=== PATIENT | female | born 1985 | race Caucasian/White ===

== ENCOUNTER 2023-11-09 12:30 | Outpatient (REF) | payer OTHER, SELFPAY ==
[2023-11-11 14:34] LABS: Amphetamine Screen Urine Not Detected (Not Detect); Barbiturates, Urine Not Detected (Not Detect); Benzodiazepines Screen Urine Not Detected (Not Detect); Buprenorphine Scr Not Detected (Not Detect); Cannabinoid Screen Urine POSITIVE (Not Detect); Cocaine Screen Urine Not Detected (Not Detect); Fentanyl, urine Not Detected (Not Detect); Methadone Screen, Urine Not Detected (Not Detect); Opiate Screen Urine Not Detected (Not Detect); Oxycodone Screen Urine Not Detected (Not Detect); Phencyclidine Screen Urine Not Detected (Not Detect)
== END 2023-11-09 12:31 | disposition home or self-care (01) ==
LOC: HO.PHPLNP 12:30
PROVIDERS: Visit Provider Psychiatry & Neurology Psychiatry
DX: F33.1 Major depressive disorder, recurrent, moderate (principal); F12.10 Cannabis abuse, uncomplicated; F10.20 Alcohol dependence, uncomplicated
CPT/HCPCS: 80307

== ENCOUNTER 2023-11-10 08:30 | Outpatient (RCR) | payer OTHER, SELFPAY ==
[2023-11-09 11:44] VITALS: BMI 25.9
[2023-11-09 13:03] VITALS: BP 136/92; PULSE 67; TEMP 37.1
--- NOTE | 2023-11-09 14:49 | PC.ADMIT ---
Patient is a 38 year old female who was referred to [facility] by her out patient therapist d/t increased depression and anxiety secondary to loss of employment and her 4.5 year relationship ending. Patient reports feeling blind-sided regarding the end of the relationship and is tearful when talking about the relationship. Reports she is trying to figure out what when wrong. Patient reports she was planning on asking her ex-girlfriend to her in January 2024. Patient reports a history of binge drinking when feeling overwhelmed. Stated she has been drinking about a beer daily or every other day since the age of 24. Stated she will drink heavily for 2-3 months then cut down to drinking a beer a day or so for the next several months. Stated currently for the past 2.5 weeks she was drinking 5 pints of beer with 6.2 percent alcohol each. Denied any current alcohol withdrawal sxs. Denied diaphoresis, no tremors, no nausea, no vomiting, no AH, No VH. Denied any history of alcohol withdrawal when she stopped drinking heavily and denied withdrawal seizures. Patient is alert and oriented x4. Calm and cooperative. Presented with depressed mood and anxious affect, tearful at times. When asked if she was having any suicidal thoughts she stated, Just Suicidal thoughts. Not wanting to leave my mom alone. No plans though. No thoughts to act on it, they subsided. They were heavy at day when the break up was fresh . I don't have access to any firearms. Even though I have suicidal thoughts I have not been cutting myself. I could not do that to my mother . She was given a copy of her safety plan if needed. Reports she has been spending time with her friend Adriana. Spending time with Adriana two times a week. Reports she is living in the house she purchased with her ex-. Stated her mother moved in with her as well for more support. Medications reconciled with patient and patient's pharmacy. She reports taking medications as prescribed. Educated patient about the effects of alcohol mixing with antidepressant medication including decreased efficacy and potential side effects.
--- NOTE | 2023-11-10 14:14 | PC.NURSE ---
Dr Parisi met with Trudy and Trudy disclosed she is having SI and HI towards her mother. She reports she does not want to leave her mom alone as she is the only child. Searching less painful ways to commit suicide and homicide however has no specific plan at this time and no intent. She reports drinking 6-8 beers a night with high alcohol content. She also lost her job and relationship recently and is feeling hopeless. Nurse to Nurse done with Berna CASTILLO in the pod regarding the above mentioned information and also notified Berna that Patient on Section 12 A that I will be faxing over to the ER.
--- NOTE | 2023-11-10 17:23 | HO.PHP ---
Client's case has been opened and reviewed in team.
--- NOTE | 2023-11-10 18:09 | HO.PS.ADMBH ---
HPI Date of Service: 11/10/23 Chief Complaint: depression,anxiety Sources of Information: patient interviewed, chart reviewed and crisis/core team assessment reviewed HPI Narrative: This is the first [facility] admission for this 38 yo previously female with limited past psychiatric history who was referred by her outpatient therapist for worsening depression/SI and alcohol abuse in context of acute life stressors in the past month including recent job loss and grief/heartbreak related to dissolution of a long-term relationship in the past few weeks. She was fired from her job 1.5 months ago and does not feel she has any close friends or supports at this time aside from her mother whom she is currently living with since moving back to [facility] a month ago following the break-up. She reports being an only child and aside from her mother has no family that she feels close enough to, to speak of. SHe also has been drinking more heavily since the break-up (was previously a 1 beer/day or less) which has been at 6-8 beers every evening for the past month. She feels the alcohol helps her numb out and minimizes the affects of alcohol on her judgment or impulse control. She reports her mood as being extremely depressed, and does not feel like alcohol makes it worse and suggests perhaps it helps her from feeling anything. I just felt like there's no point and I just want to let go She was very tearful and distraught during our meeting, reports feeling profoundly hopeless about life, and has been having constant thoughts about not wanting to be here and feeling life is not worth living since her partner broke up with her unexpectedly one month ago. She reports experiencing worsening suicidal thoughts in the past few weeks, which have evolved into more active SI/HI with various plans including crashing her car with her mom as passenger in the car, or using a gun and maybe taking us both out with one shot through the head (physically gestures like perhaps her head on top of her mother's, asleep?). She denies taking any concrete steps but has been spending more time thinking of the logistics involved with the suicidal thoughts. Like two weeks ago, I told my mom about the suicidal thoughts... She was so scared, she made me promise I would never leave her. Since then I've been thinking of ways to that that wouldn't be painful, like 'If I have to take my mom with me I'm thinking a car could be fastest' . She could not identify any protective factors and says that it is only the obstacle of it possibly causing pain that has kept her from acting on these suicidal thoughts. I never think about anything else. I don't even think about how it would affect the rest of the family (relatives)... I just don't want my mom to be left behind to suffer if I'm gone . She denies any current plan or intention to act on this today, says she has been trying to keep herself distracted , however she adds that it just feels like it's a matter of time...if I happen to come across an idea I haven't thought of that's painless, I think I would do it . At the worst moments of mental anguish, she has been starting to warm-up to the idea of just choosing the means that is the least painful way to ... I'm starting to accept that there probably isn't a way that will be completely free from pain , specifically she thinks a gun would be instantaneous but would try to conceive of a way to do it with one shot (to kill herself and her mother at the same time). She denies having access to a firearm, but says I know I could get one at [facility] or at [facility], I doubt it would take long...the system's f&*ked up . Past Psychiatric History: No IP, PHP, detox admissions Denies SA SIB 4 yrs ago while going through divorce Therapist: Rhoda Galeano Previous medication trials: clonidine CURRENT MEDICATIONS: fluoxetine 80 mg QHS [facility] Medical History Sleep apnea Narrative: DEREK (dx 06/2023) on CPAP SH: wisdom teeth removal Denies seizures Denies TBI/concussions Ht: 5'4 Wt: 151 lbs ALL: acetaminophen, azithromycin, hydrocodone, sulfa Surgical History History of cholecystectomy Social History: Previously , 4 yrs ago. 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 Substance History: Alcohol use: recently been drinking more heavily, average drinking 6-8 beers in the evening (prior to break-up typically drank 1 unit or less/day Cannabis use: in the evenings Denies other substance use Diagnostics Vital Signs (24Hr): BMI result Body Mass Index 25.9 Meds/Allergies Meds Home Medications ?Medication ?Instructions ?Recorded ?Confirmed ?Type albuterol sulfate 90 mcg/actuation 2 puff inhalation Q4H PRN sob 11/09/23 11/10/23 History aerosol inhaler melatonin 10 mg tablet 10 mg PO BEDTIME PRN Insomnia 11/09/23 11/10/23 History montelukast 10 mg tablet 10 mg PO BEDTIME 11/09/23 11/10/23 History (Singulair) paroxetine HCl 20 mg tablet 20 mg PO DAILY 11/09/23 11/10/23 History paroxetine HCl 40 mg tablet 40 mg PO DAILY 11/09/23 11/10/23 History Allergies Allergies Allergy/AdvReac Type Severity Reaction Status Date / Time acetaminophen [From Vicodin] Allergy Nausea and Verified 11/10/23 14:31 Vomiting azithromycin Allergy Nausea and Verified 11/10/23 14:31 [From Zithromax Z-Giorgio] Vomiting hydrocodone [From Vicodin] Allergy Nausea and Verified 11/10/23 14:31 Vomiting Sulfa (Sulfonamide Allergy Unknown Verified 11/10/23 14:31 Antibiotics) Mental Status Exam Mental Status Exam Patient Orientation: Person, Place, Time and Situation Level of Consciousness: Awake and Alert Patient Behavior: Crying and Poor Eye Contact Mood Description: Depressed Affect Description: Depressed and Sad Patient Cognition Impaired: No Speech Pattern: Clear, Spontaneous Speech and Coherent Memory Description: Intact Hallucinations: None Delusions: Not Present Thought Process: Intact, Racing, Rumination and Linear Thought Content: positive for Circumstantial, positive for Suicidal Ideation and positive for Homicidal Ideation Depressive Symptoms: Changes in Appetite, Loss of Int. in Activity, Feelings of Worthlessness, Hopelessness, Feelings of Guilt, Increased Fatigue, Thoughts of /Suicide, Low Self Esteem and Difficulty Concentrating Judgement and Insight: Insight limited, judgment impaired Assessment & Plan Assessment & Plan (1) Depression: Status: Acute Qualifiers: Active/Remission status: currently active Depression Type: major depressive disorder Major depression episode severity: severe Major depression recurrence: unspecified whether recurrent Psychotic features: without psychotic features Qualified Code(s): F32.2 - Major depressive disorder, single episode, severe without psychotic features Code(s): F32.A - Depression, unspecified (2) Suicidal ideation: Status: Acute Code(s): R45.851 - Suicidal ideations (3) Alcohol abuse: Status: Acute Code(s): F10.10 - Alcohol abuse, uncomplicated (4) Cannabis abuse: Status: Acute Code(s): F12.10 - Cannabis abuse, uncomplicated Plan Section 12 to [facility] due to elevated risk of harm to self/others and may warrant higher level of care at this time. Patient is agreeable with plan to be seen by Crisis, evaluate appropriateness for placement IPLOC. . Patient educated on: diagnosis, medication risk/benefits and substance abuse Informed Consent: understands Reason for continued partial hosp. stay Substantial Risk for: harm to self, harm to others, inability to function, rapid decompensation, med/psych decompensation and other (Dispo: voluntary Section 12 to ED Crisis for psychiatric evaluation for inpatient admission) Certification I certify that partial hospital treatment is medically necessary due to the symptoms and problems resulting from the patient's mental illness and the failure to treat the patient at the partial hospital level of care would likely result in the patient requiring inpatient psychiatric care which could not be prevented at a less intensive level of care. Time Spent With Patient Time: Total time managing care of this patient today _60___ minutes.
== END 2023-11-18 06:30 | disposition admitted as inpatient to this hospital (09) ==
LOC: HO.PHPA 08:30
PROVIDERS: Visit Provider Psychiatry & Neurology Psychiatry
DX: F32.2 Major depressive disorder, single episode, severe without psychotic features (principal); R45.851 Suicidal ideations; F10.10 Alcohol abuse, uncomplicated; F12.10 Cannabis abuse, uncomplicated
CPT/HCPCS: 90791; 90853

== ENCOUNTER → 2023-11-10 08:30 | Outpatient (BNV) | payer OTHER, SELFPAY | PROVIDERS: Visit Provider Psychiatry & Neurology Psychiatry | DX: F32.2 Major depressive disorder, single episode, severe without psychotic features (principal); R45.851 Suicidal ideations; F10.10 Alcohol abuse, uncomplicated; F12.10 Cannabis abuse, uncomplicated | CPT/HCPCS: 90792 ==

== ENCOUNTER 2023-11-10 14:18 | Inpatient (IN) | payer MEDICAID, SELFPAY ==
[2023-11-10 14:29] VITALS: BP 157/101; PULSE 82; RESP 16; TEMP 36.4; O2SAT 94; BMI 25.7
--- NOTE | 2023-11-10 14:31 | ED_ITS ---
HPI - Psych General Chief Complaint: Psychiatric Symptoms Stated Complaint: crisis Time Seen by Provider: 11/10/23 14:55 Source: patient Mode of arrival: ambulatory Limitations: no limitations History of Present Illness ED Provider: Daniela Humphries PA-C HPI Narrative: Patient is a 38 year old assigned female at with a history of depression presenting to the emergency department today with increased depression and suicidal ideation. Patient states that over the last 3-4 weeks she has been having increased depression with suicidal ideation and a plan she is not sharing at this time. Patient denies any dizziness, lightheadedness, abdominal pain, nausea, vomiting, fever, chills, blurry vision, double vision, loss of vision, chest pain, difficulty breathing, shortness of breath, back pain, night sweats, pain with urination, increased urinary frequency, increased urinary urgency, blood in her urine or stool, syncope or a near syncopal episode, recent trauma or falls, bowel incontinence, bladder incontinence, or any other complaints at this time. Related Data Home Medications ?Medication ?Instructions ?Recorded ?Confirmed albuterol sulfate 90 mcg/actuation 2 puff inhalation Q4H PRN sob 11/09/23 11/10/23 aerosol inhaler melatonin 10 mg tablet 10 mg PO BEDTIME PRN Insomnia 11/09/23 11/10/23 montelukast 10 mg tablet 10 mg PO BEDTIME 11/09/23 11/10/23 (Singulair) paroxetine HCl 20 mg tablet 20 mg PO DAILY 11/09/23 11/10/23 paroxetine HCl 40 mg tablet 40 mg PO DAILY 11/09/23 11/10/23 Allergies Allergy/AdvReac Type Severity Reaction Status Date / Time acetaminophen [From Vicodin] Allergy Nausea and Verified 11/10/23 14:31 Vomiting azithromycin Allergy Nausea and Verified 11/10/23 14:31 [From Zithromax Z-Giorgio] Vomiting hydrocodone [From Vicodin] Allergy Nausea and Verified 11/10/23 14:31 Vomiting Sulfa (Sulfonamide Allergy Unknown Verified 11/10/23 14:31 Antibiotics) Review of Systems 2 Constitutional: Constitutional: Reports no additional constitutional complaints, Denies chills, Denies fever(s) and Denies night sweats Eyes: Eyes: Reports no additional eye complaints, Denies blurry vision, Denies change in vision, Denies diplopia, Denies eye discharge, Denies loss of vision and Denies eye pain ENT: Denies dizziness Cardiovascular: Cardiovascular: Reports no additional cardiovascular complaints, Denies chest pain, Denies lightheadedness, Denies Loss of Consciousness and Denies dyspnea Respiratory: Respiratory: Reports no additional respiratory complaints and Denies dyspnea Gastrointestinal: Gastrointestinal: Reports no additional gastrointestinal complaints, Denies abdominal pain, Denies melena, Denies hematochezia, Denies change in bowel habits and Denies change in stool character Genitourinary: Genitourinary: Denies hematuria, Denies urinary frequency, Denies dysuria, Denies urinary incontinence, Denies urinary hesitancy and Denies urinary urgency Musculoskeletal: Musculoskeletal: Reports no additional musculoskeletal complaints, Denies numbness and Denies tingling Neurologic: Denies dizziness, Denies loss of vision, Denies numbness and Denies tingling Psychiatric: Psychiatric: Reports no additional psychiatric complaints, Reports depression, Denies homicidal ideation and Reports suicidal ideation Endocrine: Endocrine: Reports no additional endocrine complaints Hematologic/Lymphatic: Hematologic/Lymphatic: Reports no additional hematologic/lymphatic complaints Allergic/Immunologic: Allergic/Immunologic: Reports no additional allergic/immunologic complaints PMFSH Past Medical History Attestation statement: The following information was validated with the patient. Source: old records reviewed and nursing notes reviewed Medical History Sleep apnea Surgical History History of cholecystectomy Social History Social History Household Members: Family Household Members Other:: Mother Patient Tobacco Use Status: Former Tobacco user Advance Directives: No Advance Directives Information Provided: No Do you have a plan to hurt others: Specific Physical Exam 2 Vital Signs: Vital Signs: Last Vital Signs Temp 98.3 F 11/11/23 00:05 Pulse 93 11/11/23 00:05 Resp 18 11/11/23 00:05 BP 140/89 H 11/11/23 00:05 Pulse Ox 98 11/11/23 00:05 O2 Del Method Room Air 11/11/23 00:05 BMI result Body Mass Index 25.7 Const: General: cooperative, no acute distress, alert and awake Nutritional Appearance: well nourished Orientation/consciousness: patient oriented x3 Limitations: no limitations HEENT: Head: Yes normal to inspection and Yes atraumatic Ears: hearing grossly normal bilaterally and external ears normal General nose exam: Normal external nose present, no nasal discharge noted and no epistaxis Face and sinus: Yes normal facial exam, No abrasion and No laceration Mouth: Normal oral and palatal mucosa present, no drooling and no muffled voice Eyes: General: appearance normal, both eyes and all related structures P eriorbital: periorbital findings normal Eyelids: Yes eyelids normal C onjunctivae: conjunctivae normal Pupils: Equal, round and reactive pupils present EOM: EOMs intact bilaterally Neck: Neck: Yes normal visual inspection, Yes full ROM and Yes no lymphadenopathy Chest: Chest palpation & inspection: normal inspection of the chest Resp: Effort & Inspection: normal respiratory effort and able to speak in complete sentences GI: Inspection: Yes normal to inspection Neuro: General: patient oriented x3 and moves all extremities Cranial nerves: Yes Equal, round and reactive pupils present Cognition (Neuro): n ormal cognition Extrem: General: Yes normal to inspection, Yes full ROM and Yes capillary refill normal Psych: Appearance: grossly normal Mental Status: mental status grossly normal Affect: Sad affect present Attitude: Guarded attititude/behavior present Thought content: Suicidality present Course Course Course Narrative: This is a Rapid Medical Examination (RME) performed by Rivas Dumas PA-C in triage. Full HPI, ROS, assessment and treatment plan per primary provider in the Main ED. 38 yo female with history depression, anxiety compliant with medications who presents to the ER for evaluation of worsening depression and suicidal thoughts for the last 3-4 weeks. Plan: medical clearance, CARE team evaluation Reevaluation(s) Reevaluation #1: Physician observation continued. Uneventful night. Vital signs stable. No complaints from nursing overnight. Med reconciliation reviewed and done. Pending disposition. Will continue to monitor. Time: 07:26 Medications Administered Generic Name Dose Route Start Last Admin Trade Name Freq PRN Reason Stop Dose Admin Melatonin 9 mg 11/10/23 21:27 11/10/23 21:37 Melatonin 3 Mg Tablet PO 9 mg BEDTIME PRN Administration Insomnia Montelukast Sodium 10 mg 11/10/23 21:15 11/10/23 21:37 Montelukast Sodium 10 Mg Tablet PO 10 mg BEDTIME TANG Administration Medical Decision Making Medical Decision Making MDM Narrative: Patient is a 38 year old assigned female at with a history of depression presenting to the emergency department today with increased depression and suicidal ideation. Patient's physical exam was as noted in the physical exam portion of this note. Patient's blood work showed no acute process. Patient's urine showed no acute process. I explained my physical exam findings and all test results to the patient. I answered all questions asked by the patient. Patient's disposition pending CARE team evaluation. Differential Diagnosis Differential Diagnoses: The differential diagnosis associated with the presentation includes Depression SI Admission/Observation Consideration of admission/observation: Escalation of care including admission/observation considered Patient's disposition will be determined after CARE evaluation. Lab Data [facility] Lab Attestation statement: I reviewed the patient's lab results. My interpretation of these results are in the MDM Rationale portion of this note. 11/10/23 15:21 11/10/23 15:21 Labs: Lab Results 11/10/23 11/10/23 Range/Units 15:10 15:21 WBC 10.3 (4.8-10.8) X10*3/uL RBC 4.71 (4.20-5.50) X10*6/uL Hgb 14.3 (12.0-16.0) g/dl Hct 41.4 (37.0-47.0) % MCV 87.9 (80.0-98.0) fL MCH 30.4 (27.0-33.0) pg MCHC 34.5 (31.0-35.0) g/dl RDW 14.4 (11.0-16.0) % Plt Count 358 (160-400) X10*3/uL MPV 9.2 L (9.4-12.3) fL Immature Gran % (Auto) 0.6 H (0.0-0.4) % Neut % (Auto) 64.7 (45-73) % Lymph % (Auto) 22.3 (20-40) % [place] % (Auto) 6.8 (2-11) % Eos % (Auto) 4.4 H (0-4) % Baso % (Auto) 1.2 (0-2) % Lymph # (Auto) 2.3 (1.2-4.9) X10*3/uL [place] # (Auto) 0.7 (0.1-1.2) X10*3/uL Eos # (Auto) 0.5 H (0.0-0.4) X10*3/uL Baso # (Auto) 0.1 (0.0-0.2) X10*3/uL Abs Immat Gran (auto) 0.06 H (0.00-0.03) X10*3/uL Absolute Neuts (auto) 6.7 (2.0-8.3) x10*3/uL Absolute Nucleated RBC 0.000 (0.0-0.012) X10*3/uL Nucleated RBC % (auto) 0.0 (0.0-0.2) /100WBC Sodium 137 (135-145) mmol/L Potassium 4.1 (3.3-5.1) mmol/L Chloride 104 (96-108) mmol/L Carbon Dioxide 21 L (22-29) mmol/L Anion Gap 16 (12-20) BUN 10 (9-16) mg/dL Creatinine 0.75 (0.5-1.4) mg/dL Estim Creat Clear Calc 95.4 Estimated GFR > 60 Random Glucose 100 (60-115) mg/dL Calcium 9.5 (8.4-10.2) mg/dL Magnesium 2.0 (1.6-2.6) mg/dL Total Bilirubin 0.6 (0.0-1.0) mg/dL Direct Bilirubin 0.3 (0.0-0.5) mg/dL AST 26 (5-31) U/L ALT 24 (0-31) U/L Alkaline Phosphatase 104 (39-117) U/L Total Protein 8.0 (6.5-8.0) g/dL Albumin 4.2 (3.5-5.0) g/dL Urine Color Yellow Urine Appearance Clear Urine pH 7.0 (5.0-9.0) Ur Specific [place] 1.010 (1.005-1.025) Urine Protein Negative (Neg-Trace) mg/dL Urine Glucose (UA) Negative (Negative) mg/dL Urine Ketones Negative (Negative) mg/dL Urine Blood Negative (Negative) Urine Nitrite Negative (Negative) Ur Leukocyte Esterase Moderate (2+) H (Negative) Urine RBC 0-2 (0-2) /HPF Urine WBC 0-5 (0-5) /HPF Ur Squamous Epith Cells 3-5 (0-2) /HPF Urine Bacteria Trace (None Seen) Hyaline Casts 0-2 (0-2) /LPF Urine Test NEGATIVE (NEGATIVE) Urine Opiates Screen Not Detected (Not Detect) Ur Buprenorphine Scrn Not Detected (Not Detect) ng/mL Ur Oxycodone Screen Not Detected (Not Detect) ng/mL Urine Methadone Screen Not Detected (Not Detect) ng/mL Urine Fentanyl Screen Not Detected (Not Detect) Ur Barbiturates Screen Not Detected (Not Detect) Ur Phencyclidine Scrn Not Detected (Not Detect) Ur Amphetamines Screen Not Detected (Not Detect) U Benzodiazepines Scrn Not Detected (Not Detect) Urine Cocaine Screen Not Detected (Not Detect) U Marijuana (THC) Screen POSITIVE H (Not Detect) Ethyl Alcohol < 10 mg/dL Discharge Plan Discharge Clinical Impression: Suicidal ideation Depression Qualifiers: Depression Type: major depressive disorder Major depression recurrence: u nspecified whether recurrent Active/Remission status: currently active Major depression episode severity: severe Psychotic features: without psychotic features Qualified Code(s): F32.2 - Major depressive disorder, single episode, severe without psychotic features Patient Disposition: Still a Patient Prescriptions: No Action paroxetine HCl 20 mg tablet 20 mg PO DAILY montelukast [Singulair] 10 mg Tablet 10 mg PO BEDTIME paroxetine HCl 40 mg tablet 40 mg PO DAILY melatonin 10 mg Tablet 10 mg PO BEDTIME PRN (Reason: Insomnia) Patient Comments: Patient taking Melatonin 20 mg QHS for sleep OTC. Educated patient regarding dosing of this medicaton. Patietn will review with [facility] presriber. Patient to reduce dose to 10 mg PRN. albuterol sulfate 90 mcg/actuation HFA aerosol inhaler 2 puff INHALATION Q4H PRN (Reason: sob) Interventions: White-Suicide Risk Severity Scale Last Done: 11/10/23 14:59 Print Language: Hungarian
--- NOTE | 2023-11-10 15:01 | PC.NURSE ---
Nursing Assessment/Communication Patient endorsing suicidal ideations and homicidal ideations towards mother. Per report patient endorsed a murder/suicide method.
--- NOTE | 2023-11-10 15:12 | MHC.CARE ---
Per May with [facility], patient reported SI and also stated she is an only child and didn't want to leave her mother all alone, and would instead take her with her and was researching painless ways to , for both herself and her mother. She denies current intent and specific plan, did mention self strangulation. She is reported to be researching suicide online, stating she does not want a painful for herself or her mother. Additionally, has been drinking 6-8 pints of 6.25% alcohol IPAs nightly.
[2023-11-10 15:17] VITALS: BP 158/86; PULSE 77; RESP 18; TEMP 37.1; O2SAT 98
[2023-11-10 15:21] LABS: Appearance Urine Clear; Color Urine Yellow; Glucose Urine UA Negative (Negative); Leukocyte Esterase Urine Moderate (2+) (Negative); Nitrite Urine Negative (Negative); UMIC TRIGGER UACC YES; Urine Blood Negative (Negative); Urine Ketones Negative (Negative); Urine Protein Negative (Neg-Trace)
[2023-11-10 15:26] LABS: MANUAL DIFF FLAG NO
[2023-11-10 15:26] LABS: Amphetamine Screen Urine Not Detected (Not Detect); Barbiturates, Urine Not Detected (Not Detect); Benzodiazepines Screen Urine Not Detected (Not Detect); Buprenorphine Scr Not Detected (Not Detect); Cannabinoid Screen Urine POSITIVE (Not Detect); Cocaine Screen Urine Not Detected (Not Detect); Fentanyl, urine Not Detected (Not Detect); Methadone Screen, Urine Not Detected (Not Detect); Opiate Screen Urine Not Detected (Not Detect); Oxycodone Screen Urine Not Detected (Not Detect); Phencyclidine Screen Urine Not Detected (Not Detect); Urine Pregnancy NEGATIVE (NEGATIVE)
[2023-11-10 15:27] LABS: UPreg QC Valid YES
[2023-11-10 15:32] LABS: Basophils Absolute Auto 0.1 X10*3/uL (0.0-0.2); Basophils Percent Auto 1.2 % (0-2); Eosinophils Absolute Auto 0.5 X10*3/uL (0.0-0.4); Eosinophils Percent Auto 4.4 % (0-4); Hematocrit 41.4 % (37.0-47.0); Hemoglobin 14.3 g/dl (12.0-16.0); Imm Gran Abs Auto 0.06 X10*3/uL (0.00-0.03); Imm Gran Pct Auto 0.6 % (0.0-0.4); Lymphocytes Absolute Auto 2.3 X10*3/uL (1.2-4.9); Lymphocytes Percent Auto 22.3 % (20-40); Mean Corpuscular HGB Conc 34.5 g/dl (31.0-35.0); Mean Corpuscular Hemoglobin 30.4 pg (27.0-33.0); Mean Corpuscular Volume 87.9 fL (80.0-98.0); Mean Platelet Volume 9.2 fL (9.4-12.3); Monocytes Absolute Auto 0.7 X10*3/uL (0.1-1.2); Monocytes Percent Auto 6.8 % (2-11); Neutrophils Absolute Auto 6.7 x10*3/uL (2.0-8.3); Neutrophils Percent Auto 64.7 % (45-73); Platelet Count 358 X10*3/uL (160-400); Red Blood Count 4.71 X10*6/uL (4.20-5.50); Red Cell Distribution Width 14.4 % (11.0-16.0); White Blood Count 10.3 X10*3/uL (4.8-10.8)
[2023-11-10 15:37] LABS: Bacteria Urine Trace (None Seen); Hyaline Casts Urine 0-2 /LPF (0-2); RBC Urine 0-2 /HPF (0-2); WBC Urine 0-5 /HPF (0-5)
[2023-11-10 15:50] LABS: Alanine Aminotransferase 24 U/L (0-31); Albumin Level 4.2 g/dL (3.5-5.0); Alkaline Phosphatase 104 U/L (39-117); Anion Gap 16 (12-20); Aspartate Amino Transferase 26 U/L (5-31); Bilirubin Direct 0.3 mg/dL (0.0-0.5); Bilirubin Total 0.6 mg/dL (0.0-1.0); Blood Urea Nitrogen 10 mg/dL (9-16); Calcium 9.5 mg/dL (8.4-10.2); Carbon Dioxide 21 mmol/L (22-29); Chloride 104 mmol/L (96-108); Creatinine Clr Calc Pharmacy 95.4; Estimated Glomerular Filt Rate > 60; Ethanol < 10 mg/dL; Glucose Random 100 mg/dL (60-115); Potassium 4.1 mmol/L (3.3-5.1); Sodium 137 mmol/L (135-145)
--- NOTE | 2023-11-10 19:52 | PC.NURSE ---
patient appears to remain at rest presently respirations are even and unlabored patient appears in no distress.
--- NOTE | 2023-11-10 21:06 | MHC.CARE ---
Pt evaluated by the CARE team and is an adult bedsearch. On a section 12A for safety.
[2023-11-10 21:22] VITALS: BP 146/93; PULSE 89; RESP 16; O2SAT 97
[2023-11-10] MEDS: Montelukast Sodium 10 MG TABLET PO (21:37)
[2023-11-10] MEDS: Melatonin 3 MG TABLET 9 MG PO (21:37)
[2023-11-11 00:05] VITALS: BP 140/89; PULSE 93; RESP 18; TEMP 36.8; O2SAT 98
[2023-11-11] MEDS: PARoxetine HCL 40 MG TABLET PO (09:12)
[2023-11-11] MEDS: PARoxetine HCL 20 MG TABLET PO (09:12)
--- NOTE | 2023-11-11 11:23 | PC.NURSE ---
Assumed care of this patient at 1100, patient resting quietly on bed, tearful at times, mother at bedside at this time.
--- NOTE | 2023-11-11 12:14 | PC.NURSE ---
RN to RN phone report given to Keila, question regarding last drink answered via [place] text, plan for admission inpatient pending bed assignment.
[2023-11-11 12:42] VITALS: BP 159/86; PULSE 90; RESP 20; TEMP 37.3; O2SAT 98
[2023-11-11 13:10] VITALS: BP 168/94; PULSE 80; RESP 16; TEMP 36.5; O2SAT 96
[2023-11-11 13:31] VITALS: BMI 25.4
--- NOTE | 2023-11-11 15:48 | PC.ADMIT ---
Maia Yates was admitted to from [facility] on 11/11/23 at 13:00 on a 12a for the treatment of depression. She signed a CV upon arrival. She denies current suicidal and homicidal thoughts and intent. She denies auditory and visual hallucinations. She was pleasant and cooperative with admission process. Maia reports that she was let go from her job mid September, broke up with her fpc partner in October, and then moved from [facility] back to [place] to her mother's house. She reports housing is stable. She is alert and oriented to person, place, thing, and situation. She denies history of trauma. She reports drinking 6-8 drinks daily for the past month or so and daily marijuana use. BAL was 98 and utox was negative. She reports asthma and a recent diagnosis of sleep apnea and uses CPAP at night. She reports poor appetite and states she has lost about 20 lbs in the past 2 months or so. She reports she is currently in outpatient therapy and that her outpatient therapist advised her to seek a second opinion from crisis, and that she is looking to establish outpatient psychiatric providers while admitted.
--- NOTE | 2023-11-11 16:57 | HO.PSYADMNOT ---
[facility] Date of Service: 11/11/23 Chief Complaint: crisis Sources of Information: patient interviewed, chart reviewed and crisis/core team assessment reviewed HPI Subjective Notes: [place] Warning and Conditional Voluntary Narrative: Patient is a 38-year-old female with history of MDD, ZAINAB and alcohol use d/o, who presented [place] [facility] after she was walked over from [facility] due to suicidal and homicidal ideation secondary to life stressors. Per crisis report, patient has been searching less painful ways to commit suicide and homicide towards her mother. She denies AH/VH. This is patient's 1st inpatient psychiatric admission. Patient reported suicidal ideation with no specific plan, however reports that she has been searching for a way to do it painlessly and to involve her mother . Patient's relationship of 4 years recently ended abruptly. She was also recently laid off from her place of employment. Patient has been seeing an out patient therapist since 2018. History of cutting in 2018. Denies history of suicidal or homicidal ideation. Patient reports she drinks 6-8 beers a night for the past month and smokes marijuana daily. UTOX positive for marijuana. During admission assessment, alert and oriented x3. Calm, cooperative and tearful. Patient reports feeling depressed; patient stated, I tried a new career and it did not work out. My partner broke up with me and I was blindsided because we talked about getting . I feel lost and hopeless. My thoughts of suicide started and I promised my mom I wouldn't do it. Then I brought my mom into it so she would not have to be without me and I would not have to be without her . Patient denies AH/VH. Patient reports she has been taking Paxil since 2018; patient stated, it helps me with my mood on a day-to-day basis but not during stressful times. It is the only medication of ever tried . Patient reports she is open to trying other medications to help with her mood while inpatient. Patient reports she would like a referral to an outpatient psychiatric provider. Past Psychiatric History: No IP, PHP, detox admissions Denies SA SIB 4 yrs ago while going through divorce Therapist: Rhoda Galeano Medical Evaluation Reviewed: Yes PMFSH Medical History Sleep apnea Surgical History History of cholecystectomy Family History: Alcoholism Social History: Previously , 4 yrs ago. 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 Reports drinking 6-8 beers a night. Trauma History: Denies Diagnostics Vital Signs (24Hr): Vital Signs - 24 hr 11/10/23 21:22 11/11/23 00:05 11/11/23 12:42 Temperature 98.3 F 99.1 F Pulse Rate 89 93 90 Respiratory Rate 16 18 20 Blood Pressure 146/93 H 140/89 H 159/86 H Pulse Oximetry 97 98 98 Oxygen Delivery Method Room Air Room Air Room Air 11/11/23 13:10 Temperature 97.7 F Pulse Rate 80 Respiratory Rate 16 Blood Pressure 168/94 H Pulse Oximetry 96 Oxygen Delivery Method Room Air BMI result Body Mass Index 25.4 Labs 11/10/23 15:21 11/10/23 15:21 Labs: Laboratory Results - last 48 hr 11/10/23 11/10/23 15:10 15:21 WBC 10.3 RBC 4.71 Hgb 14.3 Hct 41.4 MCV 87.9 MCH 30.4 MCHC 34.5 RDW 14.4 Plt Count 358 MPV 9.2 L Immature Gran % (Auto) 0.6 H Neut % (Auto) 64.7 Lymph % (Auto) 22.3 [place] % (Auto) 6.8 Eos % (Auto) 4.4 H Baso % (Auto) 1.2 Lymph # (Auto) 2.3 [place] # (Auto) 0.7 Eos # (Auto) 0.5 H Baso # (Auto) 0.1 Abs Immat Gran (auto) 0.06 H Absolute Neuts (auto) 6.7 Absolute Nucleated RBC 0.000 Nucleated RBC % (auto) 0.0 Sodium 137 Potassium 4.1 Chloride 104 Carbon Dioxide 21 L Anion Gap 16 BUN 10 Creatinine 0.75 Estim Creat Clear Calc 95.4 Estimated GFR > 60 Random Glucose 100 Calcium 9.5 Magnesium 2.0 Total Bilirubin 0.6 Direct Bilirubin 0.3 AST 26 ALT 24 Alkaline Phosphatase 104 Total Protein 8.0 Albumin 4.2 Urine Color Yellow Urine Appearance Clear Urine pH 7.0 Ur Specific [place] 1.010 Urine Protein Negative Urine Glucose (UA) Negative Urine Ketones Negative Urine Blood Negative Urine Nitrite Negative Ur Leukocyte Esterase Moderate (2+) H Urine RBC 0-2 Urine WBC 0-5 Ur Squamous Epith Cells 3-5 Urine Bacteria Trace Hyaline Casts 0-2 Urine Test NEGATIVE Urine Opiates Screen Not Detected Ur Buprenorphine Scrn Not Detected Ur Oxycodone Screen Not Detected Urine Methadone Screen Not Detected Urine Fentanyl Screen Not Detected Ur Barbiturates Screen Not Detected Ur Phencyclidine Scrn Not Detected Ur Amphetamines Screen Not Detected U Benzodiazepines Scrn Not Detected Urine Cocaine Screen Not Detected U Marijuana (THC) Screen POSITIVE H Ethyl Alcohol < 10 Meds/Allergies Meds Home Medications ?Medication ?Instructions ?Recorded ?Confirmed ?Type albuterol sulfate 90 mcg/actuation 2 puff inhalation Q4H PRN sob 11/09/23 11/10/23 History aerosol inhaler melatonin 10 mg tablet 10 mg PO BEDTIME PRN Insomnia 11/09/23 11/10/23 History montelukast 10 mg tablet 10 mg PO BEDTIME 11/09/23 11/10/23 History (Singulair) paroxetine HCl 20 mg tablet 20 mg PO DAILY 11/09/23 11/10/23 History paroxetine HCl 40 mg tablet 40 mg PO DAILY 11/09/23 11/10/23 History Allergies Allergies Allergy/AdvReac Type Severity Reaction Status Date / Time acetaminophen [From Vicodin] Allergy Nausea and Verified 11/10/23 14:31 Vomiting azithromycin Allergy Nausea and Verified 11/10/23 14:31 [From Zithromax Z-Giorgio] Vomiting hydrocodone [From Vicodin] Allergy Nausea and Verified 11/10/23 14:31 Vomiting Sulfa (Sulfonamide Allergy Unknown Verified 11/10/23 14:31 Antibiotics) Mental Status Exam Mental Status Exam Narrative: Pt is alert and oriented; behavior is cooperative, calm, tearful; dressed in casual attire; mood is described as depressed ; eye contact appropriate; Speech is normal rate, volume and not pressured; thought process is organized; Thought content is on tx; otherwise pertinent to relevant topics and without any delusional content, paranoid ideations or grandiosity; denies AH/VH. Pt reports suicidal ideation with [place]. She reports homicidal ideation toward mother. Assessment & Plan Assessment & Plan (1) MDD (major depressive disorder), recurrent episode: Status: Acute Code(s): F33.9 - Major depressive disorder, recurrent, unspecified (2) Alcohol use disorder: Status: Acute Code(s): F10.90 - Alcohol use, unspecified, uncomplicated Plan Patient is a 38-year-old female with history of MDD, ZAINAB and alcohol use d/o, who presented [place] [facility] after she was walked over from [facility] due to suicidal and homicidal ideation secondary to life stressors. Plan: CV 15 minute safety checks CIWA Continue home medications Obtain collateral Start: Seroquel 25mg PO daily Seroquel 50mg PO bedtime Encourage groups Referral to outpatient psychiatric prescriber Discharge planning Patient educated on: diagnosis, medication risk/benefits and therapeutic strategies Informed Consent: understands Reason for continued inpatient stay Substantial Risk for: harm to self, harm to others and med/psych decompensation Statement Statement: I have reviewed the history and physical and performed a pertinent examination on my patient. No changes have occurred unless specified. If the History and Physical was not performed prior to admission, the Hospitalist's service will be consulted for completing the admission physical. Time Spent With Patient Time: Total time managing care of this patient today _60___ minutes.
[2023-11-11] MEDS: LORazepam 1 MG TABLET 2 MG PO (17:30)
[2023-11-11 18:38] VITALS: BP 154/96
[2023-11-11 20:00] VITALS: BP 141/80; PULSE 89; RESP 16; TEMP 36.6; O2SAT 97
[2023-11-11] MEDS: Montelukast Sodium 10 MG TABLET PO (21:55)
[2023-11-11] MEDS: QUEtiapine Fumarate 50 MG TABLET PO (21:56)
[2023-11-11] MEDS: traZODone HCL 50 MG TABLET PO (22:03)
[2023-11-11] MEDS: Melatonin 3 MG TABLET 9 MG PO (22:03)
[2023-11-11 23:28] VITALS: PULSE 138; RESP 14; O2SAT 98
[2023-11-12 08:00] VITALS: BP 142/76; PULSE 97; RESP 16; TEMP 36.3; O2SAT 100
--- NOTE | 2023-11-12 08:26 | P.PNPSI_ITS ---
Subjective Subjective Date of Service: 11/12/23 Reason For Visit: crisis Subjective Notes: Conditional Voluntary Healthcare Proxy: No Guardianship: No Medical Problems Affecting Mental Status: Yes (alcohol withdrawl) Interim History: 38 yo with recent significant psychosocial stressors loss of job and loss of relationship - xs etoh use and daily mj- presented with depression/si, 20 lb weight loss Feeling better today than yesterday - though fatigued withdrawn spending mostly time in bed- Reports feels plan to restart home meds and quetiapine are good plan- ongoing SI but no plan here on unit Medication Compliance: Yes Side effects from medications: Yes (?sedation) Attending Groups: Intermittent Review of Systems Acute medical concerns: Yes continue to monitor withdrawal from alcohol Medical Review of Systems: unchanged Mental Status Exam Mental Status Exam Narrative: lying in bed Patient Appearance: Appropriate Patient Orientation: Person, Place, Time and Situation Level of Consciousness: Drowsy Patient Behavior: Appropriate, Cooperative, Isolative and Good Eye Contact Mood Description: Withdrawn and Sad Affect Description: Blunted Patient Cognition Impaired: No Ability to Follow Directions: Fair Speech Pattern: Clear Hallucinations: None Delusions: Not Present Thought Process: Intact and Goal Oriented Thought Content: positive for Suicidal Ideation Depressive Symptoms: Increased Fatigue Judgement: Fair Diagnostics Vital Signs (24Hr): Vital Signs - 24 hr 11/11/23 12:42 11/11/23 13:10 11/11/23 18:38 Temperature 99.1 F 97.7 F Pulse Rate 90 80 Respiratory Rate 20 16 Blood Pressure 159/86 H 168/94 H 154/96 H Pulse Oximetry 98 96 Oxygen Delivery Method Room Air Room Air 11/11/23 20:00 11/11/23 23:28 11/12/23 08:00 Temperature 98 F 97.4 F Pulse Rate 89 97 Respiratory Rate 16 14 16 Blood Pressure 141/80 H 142/76 H Pulse Oximetry 97 100 Oxygen Delivery Method Room Air Room Air BMI result Body Mass Index 25.4 Labs 11/10/23 15:21 11/12/23 08:21 Labs: Laboratory Results - last 48 hr 11/10/23 11/10/23 15:10 15:21 WBC 10.3 RBC 4.71 Hgb 14.3 Hct 41.4 MCV 87.9 MCH 30.4 MCHC 34.5 RDW 14.4 Plt Count 358 MPV 9.2 L Immature Gran % (Auto) 0.6 H Neut % (Auto) 64.7 Lymph % (Auto) 22.3 [place] % (Auto) 6.8 Eos % (Auto) 4.4 H Baso % (Auto) 1.2 Lymph # (Auto) 2.3 [place] # (Auto) 0.7 Eos # (Auto) 0.5 H Baso # (Auto) 0.1 Abs Immat Gran (auto) 0.06 H Absolute Neuts (auto) 6.7 Absolute Nucleated RBC 0.000 Nucleated RBC % (auto) 0.0 Sodium 137 Potassium 4.1 Chloride 104 Carbon Dioxide 21 L Anion Gap 16 BUN 10 Creatinine 0.75 Estim Creat Clear Calc 95.4 Estimated GFR > 60 Random Glucose 100 Calcium 9.5 Magnesium 2.0 Total Bilirubin 0.6 Direct Bilirubin 0.3 AST 26 ALT 24 Alkaline Phosphatase 104 Total Protein 8.0 Albumin 4.2 Urine Color Yellow Urine Appearance Clear Urine pH 7.0 Ur Specific [place] 1.010 Urine Protein Negative Urine Glucose (UA) Negative Urine Ketones Negative Urine Blood Negative Urine Nitrite Negative Ur Leukocyte Esterase Moderate (2+) H Urine RBC 0-2 Urine WBC 0-5 Ur Squamous Epith Cells 3-5 Urine Bacteria Trace Hyaline Casts 0-2 Urine Test NEGATIVE Urine Opiates Screen Not Detected Ur Buprenorphine Scrn Not Detected Ur Oxycodone Screen Not Detected Urine Methadone Screen Not Detected Urine Fentanyl Screen Not Detected Ur Barbiturates Screen Not Detected Ur Phencyclidine Scrn Not Detected Ur Amphetamines Screen Not Detected U Benzodiazepines Scrn Not Detected Urine Cocaine Screen Not Detected U Marijuana (THC) Screen POSITIVE H Ethyl Alcohol < 10 Medications Medications Current Medications Al Hydroxide/Mg Hydroxide (Magnesium Hydrox/Alum Hydrox 30 Ml Oral.Susp) 30 ml PO Q6H PRN PRN Reason: Heartburn/Nausea Hydroxyzine HCl (Hydroxyzine Hcl 25 Mg Tablet) 25 mg PO Q6H PRN PRN Reason: Anxiety Ibuprofen (Ibuprofen 400 Mg Tablet) 400 mg PO Q6H PRN PRN Reason: Pain, Mild (Pain Scale 1-3) Lorazepam (Lorazepam 1 Mg Tablet) 1 mg PO Q2H PRN PRN Reason: CIWA 8-11 Lorazepam (Lorazepam 1 Mg Tablet) 2 mg PO Q2H PRN PRN Reason: CIWA 12-15 Last Admin: 11/11/23 17:30 Dose: 2 mg Lorazepam (Lorazepam 1 Mg Tablet) 3 mg PO Q2H PRN PRN Reason: CIWA > 15, and call Magnesium Hydroxide (Milk Of Magnesia 30 Ml Oral.Susp) 30 ml PO DAILY PRN PRN Reason: Constipation Melatonin (Melatonin 3 Mg Tablet) 9 mg PO BEDTIME PRN PRN Reason: Insomnia Last Admin: 11/11/23 22:03 Dose: 9 mg Montelukast Sodium (Montelukast Sodium 10 Mg Tablet) 10 mg PO BEDTIME [facility] Last Admin: 11/11/23 21:55 Dose: 10 mg Nicotine (Nicotine 21 Mg Patch.Td24) 21 mg TRANSDERMA DAILY [facility] Nicotine Polacrilex (Nicotine Polacrilex 2 Mg Gum) 4 mg BUCCAL Q2H PRN PRN Reason: Nicotine Cravings Paroxetine HCl (Paroxetine Hcl 20 Mg Tablet) 20 mg PO DAILY [facility] Last Admin: 11/11/23 09:12 Dose: 20 mg Paroxetine HCl (Paroxetine Hcl 40 Mg Tablet) 40 mg PO DAILY [facility] Last Admin: 11/11/23 09:12 Dose: 40 mg Quetiapine Fumarate (Quetiapine Fumarate 25 Mg Tablet) 25 mg PO DAILY [facility] Quetiapine Fumarate (Quetiapine Fumarate 50 Mg Tablet) 50 mg PO BEDTIME [facility] Last Admin: 11/11/23 21:56 Dose: 50 mg Quetiapine Fumarate (Quetiapine Fumarate 25 Mg Tablet) 25 mg PO BID PRN PRN Reason: Anxiety Thiamine HCl (Thiamine Hcl 100 Mg Tablet) 100 mg PO DAILY [facility] Trazodone HCl (Trazodone Hcl 50 Mg Tablet) 50 mg PO BEDTIME MRX1 PRN PRN Reason: Insomnia Last Admin: 11/11/23 22:03 Dose: 50 mg Allergies Allergies Allergy/AdvReac Type Severity Reaction Status Date / Time acetaminophen [From Vicodin] Allergy Nausea and Verified 11/10/23 14:31 Vomiting azithromycin Allergy Nausea and Verified 11/10/23 14:31 [From Zithromax Z-Giorgio] Vomiting hydrocodone [From Vicodin] Allergy Nausea and Verified 11/10/23 14:31 Vomiting Sulfa (Sulfonamide Allergy Unknown Verified 11/10/23 14:31 Antibiotics) Assessment & Plan Assessment & Plan (1) MDD (major depressive disorder), recurrent episode: Status: Acute Code(s): F33.9 - Major depressive disorder, recurrent, unspecified (2) Alcohol use disorder: Status: Acute Code(s): F10.90 - Alcohol use, unspecified, uncomplicated Plan Patient is a 38-year-old female with history of MDD, ZAINAB and alcohol use d/o, who presented to [facility] after she was walked over from [facility] due to suicidal and homicidal ideation secondary to life stressors. Plan: CV 15 minute safety checks CIWA Continue home medications Obtain collateral Start: Seroquel 25mg PO daily Seroquel 50mg PO bedtime Encourage groups Referral to outpatient psychiatric prescriber Discharge planning 11/12/23 CTP Patient educated on: substance abuse and therapeutic strategies Informed Consent: understands and further education needed Reason for continued inpatient stay Substantial Risk for: harm to self and rapid decompensation Time Spent With Patient Time: Total time managing care of this patient today ____ minutes.
[2023-11-12] MEDS: PARoxetine HCL 40 MG TABLET PO (08:45)
[2023-11-12] MEDS: Thiamine HCL 100 MG TABLET PO (08:45)
[2023-11-12] MEDS: QUEtiapine Fumarate 25 MG TABLET PO (08:45)
[2023-11-12] MEDS: PARoxetine HCL 20 MG TABLET PO (08:45)
[2023-11-12 08:57] LABS: Alanine Aminotransferase 25 U/L (0-31); Albumin Level 3.9 g/dL (3.5-5.0); Alkaline Phosphatase 88 U/L (39-117); Anion Gap 14 (12-20); Aspartate Amino Transferase 24 U/L (5-31); Bilirubin Total 0.7 mg/dL (0.0-1.0); Blood Urea Nitrogen 9 mg/dL (9-16); Calcium 9.5 mg/dL (8.4-10.2); Carbon Dioxide 25 mmol/L (22-29); Chloride 107 mmol/L (96-108); Cholesterol 179 mg/dL (<200); Creatinine Clr Calc Pharmacy 85.8; Estimated Glomerular Filt Rate > 60; Glucose Fasting 99 mg/dL (60-99); HDL Cholesterol 50 mg/dL (>40); LDL Cholesterol Calculated 114 mg/dL (<100); Potassium 4.2 mmol/L (3.3-5.1); Sodium 142 mmol/L (135-145); Total Protein 7.3 g/dL (6.5-8.0); Triglycerides 77 mg/dL (<150)
[2023-11-12 20:00] VITALS: BP 119/65; PULSE 85; RESP 16; TEMP 36.6; O2SAT 100
[2023-11-12] MEDS: QUEtiapine Fumarate 50 MG TABLET PO (20:30)
[2023-11-12] MEDS: Montelukast Sodium 10 MG TABLET PO (20:30)
[2023-11-12] MEDS: Melatonin 3 MG TABLET 9 MG PO (20:30)
[2023-11-12 23:37] VITALS: PULSE 72; O2SAT 98
[2023-11-13 08:00] VITALS: BP 116/73; PULSE 80; RESP 14; TEMP 36.1; O2SAT 99
[2023-11-13] MEDS: QUEtiapine Fumarate 25 MG TABLET PO (08:57)
[2023-11-13] MEDS: PARoxetine HCL 40 MG TABLET PO (08:57)
[2023-11-13] MEDS: Thiamine HCL 100 MG TABLET PO (08:58)
[2023-11-13] MEDS: PARoxetine HCL 20 MG TABLET PO (08:58)
--- NOTE | 2023-11-13 11:10 | P.PNPSI_ITS ---
Subjective Subjective Date of Service: 11/13/23 Reason For Visit: crisis Subjective Notes: Conditional Voluntary Healthcare Proxy: No Guardianship: No Medical Problems Affecting Mental Status: Yes (slight tremor - suggested she go get ciwa checked) Interim History: 38 yo reports feeling less full of grief and therefor less suicidal- today- tearful with provider still down- also reports cravings for alcohol, mj and caffeine. Hadn't meant to spend entire day in bed yesterday- Medication Compliance: Yes Side effects from medications: No Attending Groups: Intermittent Review of Systems Acute medical concerns: Yes some alcohol withdrawl Medical Review of Systems: unchanged Mental Status Exam Mental Status Exam Patient Appearance: Well Grooomed (just out of shower) and Appropriate Patient Orientation: Person, Place and Situation Level of Consciousness: Awake and Alert Patient Behavior: Appropriate, Cooperative and Crying Mood Description: Anxious and Sad Affect Description: Appropriate Patient Cognition Impaired: No Ability to Follow Directions: Good Speech Pattern: Clear Hallucinations: None Thought Process: Intact Thought Content: positive for Intact and positive for Goal Oriented Judgement: Fair Diagnostics Vital Signs (24Hr): Vital Signs - 24 hr 11/12/23 20:00 11/13/23 08:00 Temperature 97.8 F 96.9 F Pulse Rate 85 80 Respiratory Rate 16 14 Blood Pressure 119/65 116/73 Pulse Oximetry 100 99 Oxygen Delivery Method Room Air Room Air BMI result Body Mass Index 25.4 Labs 11/10/23 15:21 11/12/23 08:21 Labs: Laboratory Results - last 48 hr 11/12/23 08:21 Hold Purple Top SEE NOTE Sodium 142 Potassium 4.2 Chloride 107 Carbon Dioxide 25 Anion Gap 14 BUN 9 Creatinine 0.83 Estim Creat Clear Calc 85.8 Estimated GFR > 60 Fasting Glucose 99 Calcium 9.5 Total Bilirubin 0.7 AST 24 ALT 25 Alkaline Phosphatase 88 Total Protein 7.3 Albumin 3.9 Triglycerides 77 Cholesterol 179 LDL Cholesterol, Calc 114 H HDL Cholesterol 50 Medications Medications Current Medications Al Hydroxide/Mg Hydroxide (Magnesium Hydrox/Alum Hydrox 30 Ml Oral.Susp) 30 ml PO Q6H PRN PRN Reason: Heartburn/Nausea Hydroxyzine HCl (Hydroxyzine Hcl 25 Mg Tablet) 25 mg PO Q6H PRN PRN Reason: Anxiety Ibuprofen (Ibuprofen 400 Mg Tablet) 400 mg PO Q6H PRN PRN Reason: Pain, Mild (Pain Scale 1-3) Lorazepam (Lorazepam 1 Mg Tablet) 1 mg PO Q2H PRN PRN Reason: CIWA 8-11 Lorazepam (Lorazepam 1 Mg Tablet) 2 mg PO Q2H PRN PRN Reason: CIWA 12-15 Last Admin: 11/11/23 17:30 Dose: 2 mg Lorazepam (Lorazepam 1 Mg Tablet) 3 mg PO Q2H PRN PRN Reason: CIWA > 15, and call Magnesium Hydroxide (Milk Of Magnesia 30 Ml Oral.Susp) 30 ml PO DAILY PRN PRN Reason: Constipation Melatonin (Melatonin 3 Mg Tablet) 9 mg PO BEDTIME PRN PRN Reason: Insomnia Last Admin: 11/12/23 20:30 Dose: 9 mg Montelukast Sodium (Montelukast Sodium 10 Mg Tablet) 10 mg PO BEDTIME [facility] Last Admin: 11/12/23 20:30 Dose: 10 mg Nicotine Polacrilex (Nicotine Polacrilex 2 Mg Gum) 4 mg BUCCAL Q2H PRN PRN Reason: Nicotine Cravings Paroxetine HCl (Paroxetine Hcl 20 Mg Tablet) 20 mg PO DAILY [facility] Last Admin: 11/13/23 08:58 Dose: 20 mg Paroxetine HCl (Paroxetine Hcl 40 Mg Tablet) 40 mg PO DAILY [facility] Last Admin: 11/13/23 08:57 Dose: 40 mg Quetiapine Fumarate (Quetiapine Fumarate 25 Mg Tablet) 25 mg PO DAILY [facility] Last Admin: 11/13/23 08:57 Dose: 25 mg Quetiapine Fumarate (Quetiapine Fumarate 50 Mg Tablet) 50 mg PO BEDTIME [facility] Last Admin: 11/12/23 20:30 Dose: 50 mg Quetiapine Fumarate (Quetiapine Fumarate 25 Mg Tablet) 25 mg PO BID PRN PRN Reason: Anxiety Thiamine HCl (Thiamine Hcl 100 Mg Tablet) 100 mg PO DAILY [facility] Last Admin: 11/13/23 08:58 Dose: 100 mg Trazodone HCl (Trazodone Hcl 50 Mg Tablet) 50 mg PO BEDTIME MRX1 PRN PRN Reason: Insomnia Last Admin: 11/11/23 22:03 Dose: 50 mg Allergies Allergies Allergy/AdvReac Type Severity Reaction Status Date / Time acetaminophen [From Vicodin] Allergy Nausea and Verified 11/10/23 14:31 Vomiting azithromycin Allergy Nausea and Verified 11/10/23 14:31 [From Zithromax Z-Giorgio] Vomiting hydrocodone [From Vicodin] Allergy Nausea and Verified 11/10/23 14:31 Vomiting Sulfa (Sulfonamide Allergy Unknown Verified 11/10/23 14:31 Antibiotics) Assessment & Plan Assessment & Plan (1) MDD (major depressive disorder), recurrent episode: Status: Acute Code(s): F33.9 - Major depressive disorder, recurrent, unspecified (2) Alcohol use disorder: Status: Acute Code(s): F10.90 - Alcohol use, unspecified, uncomplicated Plan Patient is a 38-year-old female with history of MDD, ZAINAB and alcohol use d/o, who presented to [facility] after she was walked over from [facility] due to suicidal and homicidal ideation secondary to life stressors. Plan: CV 15 minute safety checks CIWA Continue home medications Obtain collateral Start: Seroquel 25mg PO daily Seroquel 50mg PO bedtime Encourage groups Referral to outpatient psychiatric prescriber Discharge planning 11/12/23 CTP 11/13/23- [facility] Patient educated on: medication risk/benefits and therapeutic strategies Informed Consent: understands Reason for continued inpatient stay Substantial Risk for: harm to self and rapid decompensation Time Spent With Patient Time: Total time managing care of this patient today ____ minutes.
[2023-11-13 12:00] VITALS: BP 128/86; PULSE 110
[2023-11-13] MEDS: LORazepam 1 MG TABLET PO (12:10)
[2023-11-13 16:13] VITALS: BP 114/73; PULSE 95; RESP 14; O2SAT 99
[2023-11-13 20:00] VITALS: BP 135/78; PULSE 88; RESP 16; TEMP 36.4; O2SAT 99
[2023-11-13] MEDS: Montelukast Sodium 10 MG TABLET PO (20:10)
[2023-11-13] MEDS: QUEtiapine Fumarate 50 MG TABLET PO (22:59)
[2023-11-14 07:29] VITALS: BP 118/79; PULSE 72; RESP 16; TEMP 36.9; O2SAT 100
[2023-11-14] MEDS: QUEtiapine Fumarate 25 MG TABLET PO (08:34)
[2023-11-14] MEDS: PARoxetine HCL 20 MG TABLET PO (08:34)
[2023-11-14] MEDS: Thiamine HCL 100 MG TABLET PO (08:34)
[2023-11-14] MEDS: PARoxetine HCL 40 MG TABLET PO (08:34)
--- NOTE | 2023-11-14 09:15 | P.PNPSI_ITS ---
Subjective Subjective Date of Service: 11/14/23 Reason For Visit: crisis Subjective Notes: Conditional Voluntary Interim History: Reviewed with Dr. Courtney. Attending groups. Pt continues to report feeling sad today. Pt reports suicidal and homicidal ideation towards mother. Pt stated, the medication is helping and the thoughts are not as frequent. But it's still on my mind . She reports feeling alcohol withdrawal symptoms improving. denies AH/VH. Medication Compliance: Yes Side effects from medications: No Attending Groups: Yes Review of Systems Constitutional: Reports as per HPI Eyes: Reports as per HPI Reports as per HPI Cardiovascular: Reports as per HPI Respiratory: Reports as per HPI Gastrointestinal: Reports as per HPI Genitourinary: Reports as per HPI Musculoskeletal: Reports as per HPI Skin/Breast: Reports as per HPI Reports as per HPI Psychiatric: Reports as per HPI Endocrine: Reports as per HPI Hematologic/Lymphatic: Reports as per HPI Allergic/Immunologic: Reports as per HPI Mental Status Exam Mental Status Exam Narrative: Pt is alert and oriented; behavior is cooperative, friendly and calm; dressed in casual attire; mood is described as sad ; eye contact appropriate; Speech is normal rate, volume and not pressured; thought process is organized; Thought content is on tx; otherwise pertinent to relevant topics and without any delusional content, paranoid ideations or grandiosity; denies AH/VH. Pt reports suicidal and homicidal ideation. Diagnostics Vital Signs (24Hr): Vital Signs - 24 hr 11/13/23 12:00 11/13/23 16:13 11/13/23 20:00 Temperature 97.6 F Pulse Rate 110 H 95 88 Respiratory Rate 14 16 Blood Pressure 128/86 114/73 135/78 Pulse Oximetry 99 99 Oxygen Delivery Method Room Air Room Air 11/14/23 07:29 Temperature 98.4 F Pulse Rate 72 Respiratory Rate 16 Blood Pressure 118/79 Pulse Oximetry 100 Oxygen Delivery Method Room Air BMI result Body Mass Index 25.4 Labs 11/10/23 15:21 11/12/23 08:21 Medications Medications Current Medications Al Hydroxide/Mg Hydroxide (Magnesium Hydrox/Alum Hydrox 30 Ml Oral.Susp) 30 ml PO Q6H PRN PRN Reason: Heartburn/Nausea Hydroxyzine HCl (Hydroxyzine Hcl 25 Mg Tablet) 25 mg PO Q6H PRN PRN Reason: Anxiety Ibuprofen (Ibuprofen 400 Mg Tablet) 400 mg PO Q6H PRN PRN Reason: Pain, Mild (Pain Scale 1-3) Lorazepam (Lorazepam 1 Mg Tablet) 1 mg PO Q2H PRN PRN Reason: CIWA 8-11 Last Admin: 11/13/23 12:10 Dose: 1 mg Lorazepam (Lorazepam 1 Mg Tablet) 2 mg PO Q2H PRN PRN Reason: CIWA 12-15 Last Admin: 11/11/23 17:30 Dose: 2 mg Lorazepam (Lorazepam 1 Mg Tablet) 3 mg PO Q2H PRN PRN Reason: CIWA > 15, and call Magnesium Hydroxide (Milk Of Magnesia 30 Ml Oral.Susp) 30 ml PO DAILY PRN PRN Reason: Constipation Melatonin (Melatonin 3 Mg Tablet) 9 mg PO BEDTIME PRN PRN Reason: Insomnia Last Admin: 11/12/23 20:30 Dose: 9 mg Montelukast Sodium (Montelukast Sodium 10 Mg Tablet) 10 mg PO BEDTIME [facility] Last Admin: 11/13/23 20:10 Dose: 10 mg Nicotine Polacrilex (Nicotine Polacrilex 2 Mg Gum) 4 mg BUCCAL Q2H PRN PRN Reason: Nicotine Cravings Paroxetine HCl (Paroxetine Hcl 20 Mg Tablet) 20 mg PO DAILY [facility] Last Admin: 11/14/23 08:34 Dose: 20 mg Paroxetine HCl (Paroxetine Hcl 40 Mg Tablet) 40 mg PO DAILY [facility] Last Admin: 11/14/23 08:34 Dose: 40 mg Quetiapine Fumarate (Quetiapine Fumarate 25 Mg Tablet) 25 mg PO DAILY [facility] Last Admin: 11/14/23 08:34 Dose: 25 mg Quetiapine Fumarate (Quetiapine Fumarate 50 Mg Tablet) 50 mg PO BEDTIME [facility] Last Admin: 11/13/23 22:59 Dose: 50 mg Quetiapine Fumarate (Quetiapine Fumarate 25 Mg Tablet) 25 mg PO BID PRN PRN Reason: Anxiety Thiamine HCl (Thiamine Hcl 100 Mg Tablet) 100 mg PO DAILY [facility] Last Admin: 11/14/23 08:34 Dose: 100 mg Trazodone HCl (Trazodone Hcl 50 Mg Tablet) 50 mg PO BEDTIME MRX1 PRN PRN Reason: Insomnia Last Admin: 11/11/23 22:03 Dose: 50 mg Allergies Allergies Allergy/AdvReac Type Severity Reaction Status Date / Time acetaminophen [From Vicodin] Allergy Nausea and Verified 11/10/23 14:31 Vomiting azithromycin Allergy Nausea and Verified 11/10/23 14:31 [From Zithromax Z-Giorgio] Vomiting hydrocodone [From Vicodin] Allergy Nausea and Verified 11/10/23 14:31 Vomiting Sulfa (Sulfonamide Allergy Unknown Verified 11/10/23 14:31 Antibiotics) Assessment & Plan Assessment & Plan (1) MDD (major depressive disorder), recurrent episode: Status: Acute Code(s): F33.9 - Major depressive disorder, recurrent, unspecified (2) Alcohol use disorder: Status: Acute Code(s): F10.90 - Alcohol use, unspecified, uncomplicated Plan Patient is a 38-year-old female with history of MDD, ZAINAB and alcohol use d/o, who presented to [facility] after she was walked over from [facility] due to suicidal and homicidal ideation secondary to life stressors. Plan: CV 15 minute safety checks CIWA Continue home medications Obtain collateral Start: Seroquel 25mg PO daily Seroquel 50mg PO bedtime Encourage groups Referral to outpatient psychiatric prescriber Discharge planning 11/12/23 CTP 11/13/23- CTP 11/13: Attending groups. Pt continues to report feeling sad today. Pt reports suicidal and homicidal ideation towards mother. Pt stated, the medication is helping and the thoughts are not as frequent. But it's still on my mind . She reports feeling alcohol withdrawal symptoms improving. denies AH/VH. Patient educated on: diagnosis, medication risk/benefits, substance abuse and therapeutic strategies Informed Consent: understands Reason for continued inpatient stay Substantial Risk for: harm to self, harm to others and med/psych decompensation Time Spent With Patient Time: Total time managing care of this patient today _30___ minutes.
--- NOTE | 2023-11-14 10:01 | PC.NURSE ---
Patient was offered the Influenza vaccine and refused at this time.
[2023-11-14 20:00] VITALS: BP 141/75; PULSE 77; RESP 16; TEMP 36.8; O2SAT 99
[2023-11-14] MEDS: Montelukast Sodium 10 MG TABLET PO (20:46)
[2023-11-14] MEDS: QUEtiapine Fumarate 50 MG TABLET PO (22:49)
[2023-11-14] MEDS: Melatonin 3 MG TABLET 9 MG PO (22:56)
[2023-11-15 07:50] VITALS: BP 122/71; PULSE 71; RESP 16; TEMP 36.4; O2SAT 97
[2023-11-15] MEDS: Thiamine HCL 100 MG TABLET PO (08:56)
[2023-11-15] MEDS: PARoxetine HCL 40 MG TABLET PO (08:56)
[2023-11-15] MEDS: QUEtiapine Fumarate 25 MG TABLET PO (08:57)
[2023-11-15] MEDS: PARoxetine HCL 20 MG TABLET PO (08:57)
--- NOTE | 2023-11-15 09:01 | P.PNPSI_ITS ---
Subjective Subjective Date of Service: 11/15/23 Reason For Visit: crisis Subjective Notes: Conditional Voluntary Interim History: Reviewed with Dr. Courtney. Active on unit, social with peers. Attending groups. Pt continues to report feeling depressed but improving ; pt stated, I'm feeling better than yesterday. I'm starting to feel more hopeful . Pt continues to report suicidal ideation with no plan; pt stated, the thoughts are becoming less frequent . She continues to report homicidal ideation towards mother; pt stated, I don't think about it in a hurtful way. It's so that she wouldn't have to go through the pain of not having me in her life. I plan on talking with her about it tonight when she visits and work through why I feel this way . denies AH/VH. Denies withdrawal symptoms. PRISCILA FU. Change Seroquel to 75mg PO bedtime Start: clonidine 0.1mg PO BID Medication Compliance: Yes Side effects from medications: No Attending Groups: Yes Review of Systems Constitutional: Reports as per HPI Eyes: Reports as per HPI Reports as per HPI Cardiovascular: Reports as per HPI Respiratory: Reports as per HPI Gastrointestinal: Reports as per HPI Musculoskeletal: Reports as per HPI Skin/Breast: Reports as per HPI Reports as per HPI Psychiatric: Reports as per HPI Endocrine: Reports as per HPI Hematologic/Lymphatic: Reports as per HPI Allergic/Immunologic: Reports as per HPI Mental Status Exam Mental Status Exam Narrative: Pt is alert and oriented; behavior is cooperative, friendly and calm; dressed in casual attire; mood is described as depressed ; eye contact appropriate; Speech is normal rate, volume and not pressured; thought process is organized; Thought content is on tx; otherwise pertinent to relevant topics and without any delusional content, paranoid ideations or grandiosity; denies AH/VH. Pt reports suicidal and homicidal ideation. Diagnostics Vital Signs (24Hr): Vital Signs - 24 hr 11/14/23 20:00 11/15/23 07:50 Temperature 98.2 F 97.6 F Pulse Rate 77 71 Respiratory Rate 16 16 Blood Pressure 141/75 H 122/71 Pulse Oximetry 99 97 Oxygen Delivery Method Room Air Room Air BMI result Body Mass Index 25.4 Labs 11/10/23 15:21 11/12/23 08:21 Medications Medications Current Medications Al Hydroxide/Mg Hydroxide (Magnesium Hydrox/Alum Hydrox 30 Ml Oral.Susp) 30 ml PO Q6H PRN PRN Reason: Heartburn/Nausea Hydroxyzine HCl (Hydroxyzine Hcl 25 Mg Tablet) 25 mg PO Q6H PRN PRN Reason: Anxiety Ibuprofen (Ibuprofen 400 Mg Tablet) 400 mg PO Q6H PRN PRN Reason: Pain, Mild (Pain Scale 1-3) Lorazepam (Lorazepam 1 Mg Tablet) 1 mg PO Q2H PRN PRN Reason: CIWA 8-11 Last Admin: 11/13/23 12:10 Dose: 1 mg Lorazepam (Lorazepam 1 Mg Tablet) 2 mg PO Q2H PRN PRN Reason: CIWA 12-15 Last Admin: 11/11/23 17:30 Dose: 2 mg Lorazepam (Lorazepam 1 Mg Tablet) 3 mg PO Q2H PRN PRN Reason: CIWA > 15, and call Magnesium Hydroxide (Milk Of Magnesia 30 Ml Oral.Susp) 30 ml PO DAILY PRN PRN Reason: Constipation Melatonin (Melatonin 3 Mg Tablet) 9 mg PO BEDTIME PRN PRN Reason: Insomnia Last Admin: 11/14/23 22:56 Dose: 9 mg Montelukast Sodium (Montelukast Sodium 10 Mg Tablet) 10 mg PO BEDTIME [facility] Last Admin: 11/14/23 20:46 Dose: 10 mg Nicotine Polacrilex (Nicotine Polacrilex 2 Mg Gum) 4 mg BUCCAL Q2H PRN PRN Reason: Nicotine Cravings Paroxetine HCl (Paroxetine Hcl 20 Mg Tablet) 20 mg PO DAILY [facility] Last Admin: 11/15/23 08:57 Dose: 20 mg Paroxetine HCl (Paroxetine Hcl 40 Mg Tablet) 40 mg PO DAILY [facility] Last Admin: 11/15/23 08:56 Dose: 40 mg Quetiapine Fumarate (Quetiapine Fumarate 25 Mg Tablet) 25 mg PO DAILY [facility] Last Admin: 11/15/23 08:57 Dose: 25 mg Quetiapine Fumarate (Quetiapine Fumarate 50 Mg Tablet) 50 mg PO BEDTIME [facility] Last Admin: 11/14/23 22:49 Dose: 50 mg Quetiapine Fumarate (Quetiapine Fumarate 25 Mg Tablet) 25 mg PO BID PRN PRN Reason: Anxiety Thiamine HCl (Thiamine Hcl 100 Mg Tablet) 100 mg PO DAILY [facility] Last Admin: 11/15/23 08:56 Dose: 100 mg Trazodone HCl (Trazodone Hcl 50 Mg Tablet) 50 mg PO BEDTIME MRX1 PRN PRN Reason: Insomnia Last Admin: 11/11/23 22:03 Dose: 50 mg Allergies Allergies Allergy/AdvReac Type Severity Reaction Status Date / Time acetaminophen [From Vicodin] Allergy Nausea and Verified 11/10/23 14:31 Vomiting azithromycin Allergy Nausea and Verified 11/10/23 14:31 [From Zithromax Z-Giorgio] Vomiting hydrocodone [From Vicodin] Allergy Nausea and Verified 11/10/23 14:31 Vomiting Sulfa (Sulfonamide Allergy Unknown Verified 11/10/23 14:31 Antibiotics) Assessment & Plan Assessment & Plan (1) MDD (major depressive disorder), recurrent episode: Status: Acute Code(s): F33.9 - Major depressive disorder, recurrent, unspecified (2) Alcohol use disorder: Status: Acute Code(s): F10.90 - Alcohol use, unspecified, uncomplicated Plan Patient is a 38-year-old female with history of MDD, ZAINAB and alcohol use d/o, who presented to [facility] after she was walked over from [facility] due to suicidal and homicidal ideation secondary to life stressors. Plan: CV 15 minute safety checks CIWA Continue home medications Obtain collateral Start: Seroquel 25mg PO daily Seroquel 50mg PO bedtime Encourage groups Referral to outpatient psychiatric prescriber Discharge planning 11/12/23 CTP 11/13/23- CTP 11/13: Attending groups. Pt continues to report feeling sad today. Pt reports suicidal and homicidal ideation towards mother. Pt stated, the medication is helping and the thoughts are not as frequent. But it's still on my mind . She reports feeling alcohol withdrawal symptoms improving. denies AH/VH. 11/14: Active on unit, social with peers. Attending groups. Pt continues to report feeling depressed but improving ; pt stated, I'm feeling better than yesterday. I'm starting to feel more hopeful . Pt continues to report suicidal ideation with no plan; pt stated, the thoughts are becoming less frequent . She continues to report homicidal ideation towards mother; pt stated, I don't think about it in a hurtful way. It's so that she wouldn't have to go through the pain of not having me in her life. I plan on talking with her about it tonight when she visits and work through why I feel this way . denies AH/VH. Denies withdrawal symptoms. DC CIWA. Change Seroquel to 75mg PO bedtime Start: clonidine 0.1mg PO BID Patient educated on: diagnosis, medication risk/benefits and therapeutic strategies Reason for continued inpatient stay Substantial Risk for: harm to self, harm to others and med/psych decompensation Time Spent With Patient Time: Total time managing care of this patient today _30___ minutes.
[2023-11-15 09:54] VITALS: BP 133/75; PULSE 90; RESP 16
[2023-11-15] MEDS: cloNIDine HCL 0.1 MG TABLET PO ×2 (09:57→21:31)
[2023-11-15 21:29] VITALS: BP 135/85; PULSE 71; RESP 16; TEMP 36.8; O2SAT 98
[2023-11-15] MEDS: Montelukast Sodium 10 MG TABLET PO (21:30)
[2023-11-15] MEDS: QUEtiapine Fumarate 25 MG TABLET 75 MG PO (22:55)
[2023-11-15] MEDS: Melatonin 3 MG TABLET 9 MG PO (23:08)
[2023-11-16 07:30] VITALS: BP 94/50; PULSE 62; RESP 14; TEMP 36.4; O2SAT 100
--- NOTE | 2023-11-16 08:56 | P.PNPSI_ITS ---
Subjective Subjective Date of Service: 11/16/23 Reason For Visit: crisis Subjective Notes: Conditional Voluntary Interim History: Dr. Courtney present for assessment. Pt continues to report feeling depressed but improving ; pt stated, I talked to my mom yesterday about the homicidal thoughts I was having. She was trying to blame herself but we talked about it and she is happy that I came here for help . Patient reports she continues to have suicidal ideation but states that she is not thinking about it as often. She also reports some homicidal ideation but feels that that is starting to go away . Patient reports she feels clonidine has been helpful with her anxiety throughout the day. denies AH/VH. Continue current treatment plan. Medication Compliance: Yes Side effects from medications: No Attending Groups: Yes Review of Systems Constitutional: Reports as per HPI Eyes: Reports as per HPI Reports as per HPI Cardiovascular: Reports as per HPI Respiratory: Reports as per HPI Gastrointestinal: Reports as per HPI Musculoskeletal: Reports as per HPI Skin/Breast: Reports as per HPI Reports as per HPI Psychiatric: Reports as per HPI Endocrine: Reports as per HPI Hematologic/Lymphatic: Reports as per HPI Allergic/Immunologic: Reports as per HPI Mental Status Exam Mental Status Exam Narrative: Pt is alert and oriented; behavior is cooperative, friendly and calm; dressed in casual attire; mood is described as depressed ; eye contact appropriate; Speech is normal rate, volume and not pressured; thought process is organized; Thought content is on tx; otherwise pertinent to relevant topics and without any delusional content, paranoid ideations or grandiosity; denies AH/VH. Pt reports suicidal and homicidal ideation. Diagnostics Vital Signs (24Hr): Vital Signs - 24 hr 11/15/23 09:54 11/15/23 21:29 11/16/23 07:30 Temperature 98.2 F 97.5 F Pulse Rate 90 71 62 Respiratory Rate 16 16 14 Blood Pressure 133/75 135/85 94/50 L Pulse Oximetry 98 100 Oxygen Delivery Method Room Air Room Air BMI result Body Mass Index 25.4 Labs 11/10/23 15:21 11/12/23 08:21 Medications Medications Current Medications Al Hydroxide/Mg Hydroxide (Magnesium Hydrox/Alum Hydrox 30 Ml Oral.Susp) 30 ml PO Q6H PRN PRN Reason: Heartburn/Nausea Clonidine HCl (Clonidine Hcl 0.1 Mg Tablet) 0.1 mg PO BID [facility]; Protocol Last Admin: 11/15/23 21:31 Dose: 0.1 mg Hydroxyzine HCl (Hydroxyzine Hcl 25 Mg Tablet) 25 mg PO Q6H PRN PRN Reason: Anxiety Ibuprofen (Ibuprofen 400 Mg Tablet) 400 mg PO Q6H PRN PRN Reason: Pain, Mild (Pain Scale 1-3) Magnesium Hydroxide (Milk Of Magnesia 30 Ml Oral.Susp) 30 ml PO DAILY PRN PRN Reason: Constipation Melatonin (Melatonin 3 Mg Tablet) 9 mg PO BEDTIME PRN PRN Reason: Insomnia Last Admin: 11/15/23 23:08 Dose: 9 mg Montelukast Sodium (Montelukast Sodium 10 Mg Tablet) 10 mg PO BEDTIME [facility] Last Admin: 11/15/23 21:30 Dose: 10 mg Nicotine Polacrilex (Nicotine Polacrilex 2 Mg Gum) 4 mg BUCCAL Q2H PRN PRN Reason: Nicotine Cravings Paroxetine HCl (Paroxetine Hcl 20 Mg Tablet) 20 mg PO DAILY [facility] Last Admin: 11/15/23 08:57 Dose: 20 mg Paroxetine HCl (Paroxetine Hcl 40 Mg Tablet) 40 mg PO DAILY [facility] Last Admin: 11/15/23 08:56 Dose: 40 mg Quetiapine Fumarate (Quetiapine Fumarate 25 Mg Tablet) 75 mg PO BEDTIME [facility] Last Admin: 11/15/23 22:55 Dose: 75 mg Trazodone HCl (Trazodone Hcl 50 Mg Tablet) 50 mg PO BEDTIME MRX1 PRN PRN Reason: Insomnia Last Admin: 11/11/23 22:03 Dose: 50 mg Allergies Allergies Allergy/AdvReac Type Severity Reaction Status Date / Time acetaminophen [From Vicodin] Allergy Nausea and Verified 11/10/23 14:31 Vomiting azithromycin Allergy Nausea and Verified 11/10/23 14:31 [From Zithromax Z-Giorgio] Vomiting hydrocodone [From Vicodin] Allergy Nausea and Verified 11/10/23 14:31 Vomiting Sulfa (Sulfonamide Allergy Unknown Verified 11/10/23 14:31 Antibiotics) Assessment & Plan Assessment & Plan (1) MDD (major depressive disorder), recurrent episode: Status: Acute Code(s): F33.9 - Major depressive disorder, recurrent, unspecified (2) Alcohol use disorder: Status: Acute Code(s): F10.90 - Alcohol use, unspecified, uncomplicated Plan Patient is a 38-year-old female with history of MDD, ZAINAB and alcohol use d/o, who presented to [facility] after she was walked over from [facility] due to suicidal and homicidal ideation secondary to life stressors. Plan: CV 15 minute safety checks CIWA Continue home medications Obtain collateral Start: Seroquel 25mg PO daily Seroquel 50mg PO bedtime Encourage groups Referral to outpatient psychiatric prescriber Discharge planning 11/12/23 CTP 11/13/23- CTP 11/13: Attending groups. Pt continues to report feeling sad today. Pt reports suicidal and homicidal ideation towards mother. Pt stated, the medication is helping and the thoughts are not as frequent. But it's still on my mind . She reports feeling alcohol withdrawal symptoms improving. denies AH/VH. 11/14: Active on unit, social with peers. Attending groups. Pt continues to report feeling depressed but improving ; pt stated, I'm feeling better than yesterday. I'm starting to feel more hopeful . Pt continues to report suicidal ideation with no plan; pt stated, the thoughts are becoming less frequent . She continues to report homicidal ideation towards mother; pt stated, I don't think about it in a hurtful way. It's so that she wouldn't have to go through the pain of not having me in her life. I plan on talking with her about it tonight when she visits and work through why I feel this way . denies AH/VH. Denies withdrawal symptoms. DC CIWA. Change Seroquel to 75mg PO bedtime Start: clonidine 0.1mg PO BID 11/15: Pt continues to report feeling depressed but improving ; pt stated, I talked to my mom yesterday about the homicidal thoughts I was having. She was trying to blame herself but we talked about it and she is happy that I came here for help . Patient reports she continues to have suicidal ideation but states that she is not thinking about it as often. She also reports some homicidal ideation but feels that that is starting to go away . Patient reports she feels clonidine has been helpful with her anxiety throughout the day. denies AH/VH. Continue current treatment plan. Patient educated on: diagnosis, medication risk/benefits, substance abuse and therapeutic strategies Reason for continued inpatient stay Substantial Risk for: harm to self, harm to others and med/psych decompensation Time Spent With Patient Time: Total time managing care of this patient today _30___ minutes.
[2023-11-16 09:17] VITALS: BP 126/66
[2023-11-16] MEDS: cloNIDine HCL 0.1 MG TABLET PO ×2 (09:17→22:14)
[2023-11-16] MEDS: PARoxetine HCL 40 MG TABLET PO (09:17)
[2023-11-16] MEDS: PARoxetine HCL 20 MG TABLET PO (09:17)
--- NOTE | 2023-11-16 16:01 | MHC.RECOVRN ---
Met with patient in family room at this time, she was with her mother. Patient requested I check in with her in recovery group with Miri CASTILLO yesterday. Patient was in good spirits, and stated she is excited to go to the recovery group. Patient would like to follow up with our clinic outpatient when she leaves . Resources were provided. will check back in this week.
[2023-11-16 20:00] VITALS: BP 125/71; PULSE 66; RESP 16; TEMP 36.4; O2SAT 98
[2023-11-16] MEDS: Magnesium Hydrox/Alum Hydrox 30 ML ORAL.SUSP PO (20:06)
[2023-11-16] MEDS: Montelukast Sodium 10 MG TABLET PO (22:13)
[2023-11-16] MEDS: QUEtiapine Fumarate 25 MG TABLET 75 MG PO (22:15)
[2023-11-16] MEDS: Melatonin 3 MG TABLET 9 MG PO (22:15)
[2023-11-17 07:00] VITALS: BMI 25.8
[2023-11-17 08:00] VITALS: BP 89/50; PULSE 63; RESP 16; TEMP 36.3; O2SAT 100
[2023-11-17] MEDS: PARoxetine HCL 20 MG TABLET PO (08:32)
[2023-11-17] MEDS: PARoxetine HCL 40 MG TABLET PO (08:32)
[2023-11-17 08:33] VITALS: BP 89/50
--- NOTE | 2023-11-17 09:15 | P.PNPSI_ITS ---
Subjective Subjective Date of Service: 11/17/23 Reason For Visit: crisis Subjective Notes: Conditional Voluntary Interim History: Reviewed with Dr. Courtney. Pt reports feeling better today' pt stated, it's helpful having people to talk to about what I'm thinking and feeling. My mom has been supportive and I'm trying to be comfortable with being alone and enjoying my own company . Pt reports she is working on a coping skills list for when she is discharged. She reports she is no longer having homicidal ideation; pt stated, the thoughts went away after I spoke to my mom about how I'm feeling and how she can help . Patient continues to have suicidal ideation but states that she is not thinking about it as often. denies AH/VH. Continue current treatment plan. Medication Compliance: Yes Side effects from medications: No Attending Groups: Yes Review of Systems Constitutional: Reports as per HPI Eyes: Reports as per HPI Reports as per HPI Cardiovascular: Reports as per HPI Respiratory: Reports as per HPI Gastrointestinal: Reports as per HPI Musculoskeletal: Reports as per HPI Skin/Breast: Reports as per HPI Reports as per HPI Psychiatric: Reports as per HPI Endocrine: Reports as per HPI Hematologic/Lymphatic: Reports as per HPI Allergic/Immunologic: Reports as per HPI Mental Status Exam Mental Status Exam Narrative: Pt is alert and oriented; behavior is cooperative, friendly and calm; dressed in casual attire; mood is described as okay ; eye contact appropriate; Speech is normal rate, volume and not pressured; thought process is organized; Thought content is on tx; otherwise pertinent to relevant topics and without any delusional content, paranoid ideations or grandiosity; denies HI/AH/VH. Pt reports suicidal ideation that is decreasing. Diagnostics Vital Signs (24Hr): Vital Signs - 24 hr 11/16/23 09:17 11/16/23 20:00 11/17/23 08:00 Temperature 97.6 F 97.4 F Pulse Rate 66 63 Respiratory Rate 16 16 Blood Pressure 126/66 125/71 89/50 L Pulse Oximetry 98 100 Oxygen Delivery Method Room Air Room Air 11/17/23 08:33 Temperature Pulse Rate Respiratory Rate Blood Pressure 89/50 L Pulse Oximetry Oxygen Delivery Method BMI result Body Mass Index 25.4 Labs 11/10/23 15:21 11/12/23 08:21 Medications Medications Current Medications Al Hydroxide/Mg Hydroxide (Magnesium Hydrox/Alum Hydrox 30 Ml Oral.Susp) 30 ml PO Q6H PRN PRN Reason: Heartburn/Nausea Last Admin: 11/16/23 20:06 Dose: 30 ml Clonidine HCl (Clonidine Hcl 0.1 Mg Tablet) 0.1 mg PO BID [facility]; Protocol Last Admin: 11/17/23 08:33 Dose: Not Given Hydroxyzine HCl (Hydroxyzine Hcl 25 Mg Tablet) 25 mg PO Q6H PRN PRN Reason: Anxiety Ibuprofen (Ibuprofen 400 Mg Tablet) 400 mg PO Q6H PRN PRN Reason: Pain, Mild (Pain Scale 1-3) Magnesium Hydroxide (Milk Of Magnesia 30 Ml Oral.Susp) 30 ml PO DAILY PRN PRN Reason: Constipation Melatonin (Melatonin 3 Mg Tablet) 9 mg PO BEDTIME PRN PRN Reason: Insomnia Last Admin: 11/16/23 22:15 Dose: 9 mg Montelukast Sodium (Montelukast Sodium 10 Mg Tablet) 10 mg PO BEDTIME [facility] Last Admin: 11/16/23 22:13 Dose: 10 mg Nicotine Polacrilex (Nicotine Polacrilex 2 Mg Gum) 4 mg BUCCAL Q2H PRN PRN Reason: Nicotine Cravings Paroxetine HCl (Paroxetine Hcl 20 Mg Tablet) 20 mg PO DAILY [facility] Last Admin: 11/17/23 08:32 Dose: 20 mg Paroxetine HCl (Paroxetine Hcl 40 Mg Tablet) 40 mg PO DAILY [facility] Last Admin: 11/17/23 08:32 Dose: 40 mg Quetiapine Fumarate (Quetiapine Fumarate 25 Mg Tablet) 75 mg PO BEDTIME [facility] Last Admin: 11/16/23 22:15 Dose: 75 mg Trazodone HCl (Trazodone Hcl 50 Mg Tablet) 50 mg PO BEDTIME MRX1 PRN PRN Reason: Insomnia Last Admin: 11/11/23 22:03 Dose: 50 mg Allergies Allergies Allergy/AdvReac Type Severity Reaction Status Date / Time acetaminophen [From Vicodin] Allergy Nausea and Verified 11/10/23 14:31 Vomiting azithromycin Allergy Nausea and Verified 11/10/23 14:31 [From Zithromax Z-Giorgio] Vomiting hydrocodone [From Vicodin] Allergy Nausea and Verified 11/10/23 14:31 Vomiting Sulfa (Sulfonamide Allergy Unknown Verified 11/10/23 14:31 Antibiotics) Assessment & Plan Assessment & Plan (1) MDD (major depressive disorder), recurrent episode: Status: Acute Code(s): F33.9 - Major depressive disorder, recurrent, unspecified (2) Alcohol use disorder: Status: Acute Code(s): F10.90 - Alcohol use, unspecified, uncomplicated Plan Patient is a 38-year-old female with history of MDD, ZAINAB and alcohol use d/o, who presented to [facility] after she was walked over from [facility] due to suicidal and homicidal ideation secondary to life stressors. Plan: CV 15 minute safety checks CIWA Continue home medications Obtain collateral Start: Seroquel 25mg PO daily Seroquel 50mg PO bedtime Encourage groups Referral to outpatient psychiatric prescriber Discharge planning 11/12/23 CTP 11/13/23- CTP 11/13: Attending groups. Pt continues to report feeling sad today. Pt reports suicidal and homicidal ideation towards mother. Pt stated, the medication is helping and the thoughts are not as frequent. But it's still on my mind . She reports feeling alcohol withdrawal symptoms improving. denies AH/VH. 11/14: Active on unit, social with peers. Attending groups. Pt continues to report feeling depressed but improving ; pt stated, I'm feeling better than yesterday. I'm starting to feel more hopeful . Pt continues to report suicidal ideation with no plan; pt stated, the thoughts are becoming less frequent . She continues to report homicidal ideation towards mother; pt stated, I don't think about it in a hurtful way. It's so that she wouldn't have to go through the pain of not having me in her life. I plan on talking with her about it tonight when she visits and work through why I feel this way . denies AH/VH. Denies withdrawal symptoms. DC CIWA. Change Seroquel to 75mg PO bedtime Start: clonidine 0.1mg PO BID 11/15: Pt continues to report feeling depressed but improving ; pt stated, I talked to my mom yesterday about the homicidal thoughts I was having. She was trying to blame herself but we talked about it and she is happy that I came here for help . Patient reports she continues to have suicidal ideation but states that she is not thinking about it as often. She also reports some homicidal ideation but feels that that is starting to go away . Patient reports she feels clonidine has been helpful with her anxiety throughout the day. denies AH/VH. Continue current treatment plan. 11/16: Pt reports feeling better today' pt stated, it's helpful having people to talk to about what I'm thinking and feeling. My mom has been supportive and I'm trying to be comfortable with being alone and enjoying my own company . Pt reports she is working on a coping skills list for when she is discharged. She reports she is no longer having homicidal ideation; pt stated, the thoughts went away after I spoke to my mom about how I'm feeling and how she can help . Patient continues to have suicidal ideation but states that she is not thinking about it as often. denies AH/VH. Continue current treatment plan. Patient educated on: diagnosis, medication risk/benefits and therapeutic strategies Informed Consent: understands Reason for continued inpatient stay Substantial Risk for: harm to self and med/psych decompensation Time Spent With Patient Time: Total time managing care of this patient today _30___ minutes.
[2023-11-17 20:00] VITALS: BP 138/69; PULSE 67; RESP 18; TEMP 36.8; O2SAT 99
[2023-11-17 20:45] VITALS: BP 138/69
[2023-11-17] MEDS: QUEtiapine Fumarate 25 MG TABLET 75 MG PO (20:45)
[2023-11-17] MEDS: Montelukast Sodium 10 MG TABLET PO (20:45)
[2023-11-17] MEDS: cloNIDine HCL 0.1 MG TABLET PO (20:45)
[2023-11-17] MEDS: Melatonin 3 MG TABLET 9 MG PO (20:49)
[2023-11-18 08:00] VITALS: BP 112/56; PULSE 71; RESP 16; TEMP 36.4; O2SAT 99
[2023-11-18] MEDS: PARoxetine HCL 20 MG TABLET PO (08:54)
[2023-11-18] MEDS: PARoxetine HCL 40 MG TABLET PO (08:54)
[2023-11-18 08:59] VITALS: BP 127/60; PULSE 83
[2023-11-18] MEDS: cloNIDine HCL 0.1 MG TABLET PO ×2 (09:00→21:10)
--- NOTE | 2023-11-18 09:19 | P.PNPSI_ITS ---
Subjective Subjective Date of Service: 11/18/23 Reason For Visit: crisis Subjective Notes: Conditional Voluntary Interim History: Reviewed with Dr. Courtney. Pt reports feeling better today' pt stated, I'm feeling overall a lot better. I'm less anxious about life in general. I'm not thinking of suicide as a solution to my problems anymore . She continues to work on a coping skills list for when she is discharged. denies SI/HI/VH/AH. Planning to return to [facility] after discharged. Continue current tx plan. Medication Compliance: Yes Side effects from medications: No Attending Groups: Yes Review of Systems Constitutional: Reports as per HPI Eyes: Reports as per HPI Reports as per HPI Cardiovascular: Reports as per HPI Respiratory: Reports as per HPI Gastrointestinal: Reports as per HPI Musculoskeletal: Reports as per HPI Skin/Breast: Reports as per HPI Reports as per HPI Psychiatric: Reports as per HPI Endocrine: Reports as per HPI Hematologic/Lymphatic: Reports as per HPI Allergic/Immunologic: Reports as per HPI Mental Status Exam Mental Status Exam Narrative: Pt is alert and oriented; behavior is cooperative, friendly and calm; dressed in casual attire; mood is described as better ; eye contact appropriate; Speech is normal rate, volume and not pressured; thought process is organized; Thought content is on tx; otherwise pertinent to relevant topics and without any delusional content, paranoid ideations or grandiosity; denies SI/HI/AH/VH. Diagnostics Vital Signs (24Hr): Vital Signs - 24 hr 11/17/23 20:00 11/17/23 20:45 11/18/23 08:00 Temperature 98.3 F 97.5 F Pulse Rate 67 71 Respiratory Rate 18 16 Blood Pressure 138/69 138/69 112/56 L Pulse Oximetry 99 99 Oxygen Delivery Method Room Air Room Air 11/18/23 08:59 Temperature Pulse Rate 83 Respiratory Rate Blood Pressure 127/60 Pulse Oximetry Oxygen Delivery Method BMI result Body Mass Index 25.8 Labs 11/10/23 15:21 11/12/23 08:21 Medications Medications Current Medications Al Hydroxide/Mg Hydroxide (Magnesium Hydrox/Alum Hydrox 30 Ml Oral.Susp) 30 ml PO Q6H PRN PRN Reason: Heartburn/Nausea Last Admin: 11/16/23 20:06 Dose: 30 ml Clonidine HCl (Clonidine Hcl 0.1 Mg Tablet) 0.1 mg PO BID [facility]; Protocol Last Admin: 11/18/23 09:00 Dose: 0.1 mg Hydroxyzine HCl (Hydroxyzine Hcl 25 Mg Tablet) 25 mg PO Q6H PRN PRN Reason: Anxiety Ibuprofen (Ibuprofen 400 Mg Tablet) 400 mg PO Q6H PRN PRN Reason: Pain, Mild (Pain Scale 1-3) Magnesium Hydroxide (Milk Of Magnesia 30 Ml Oral.Susp) 30 ml PO DAILY PRN PRN Reason: Constipation Melatonin (Melatonin 3 Mg Tablet) 9 mg PO BEDTIME PRN PRN Reason: Insomnia Last Admin: 11/17/23 20:49 Dose: 9 mg Montelukast Sodium (Montelukast Sodium 10 Mg Tablet) 10 mg PO BEDTIME [facility] Last Admin: 11/17/23 20:45 Dose: 10 mg Nicotine Polacrilex (Nicotine Polacrilex 2 Mg Gum) 4 mg BUCCAL Q2H PRN PRN Reason: Nicotine Cravings Paroxetine HCl (Paroxetine Hcl 20 Mg Tablet) 20 mg PO DAILY [facility] Last Admin: 11/18/23 08:54 Dose: 20 mg Paroxetine HCl (Paroxetine Hcl 40 Mg Tablet) 40 mg PO DAILY [facility] Last Admin: 11/18/23 08:54 Dose: 40 mg Quetiapine Fumarate (Quetiapine Fumarate 25 Mg Tablet) 75 mg PO BEDTIME [facility] Last Admin: 11/17/23 20:45 Dose: 75 mg Trazodone HCl (Trazodone Hcl 50 Mg Tablet) 50 mg PO BEDTIME MRX1 PRN PRN Reason: Insomnia Last Admin: 11/11/23 22:03 Dose: 50 mg Allergies Allergies Allergy/AdvReac Type Severity Reaction Status Date / Time acetaminophen [From Vicodin] Allergy Nausea and Verified 11/10/23 14:31 Vomiting azithromycin Allergy Nausea and Verified 11/10/23 14:31 [From Zithromax Z-Giorgio] Vomiting hydrocodone [From Vicodin] Allergy Nausea and Verified 11/10/23 14:31 Vomiting Sulfa (Sulfonamide Allergy Unknown Verified 11/10/23 14:31 Antibiotics) Assessment & Plan Assessment & Plan (1) MDD (major depressive disorder), recurrent episode: Status: Acute Code(s): F33.9 - Major depressive disorder, recurrent, unspecified (2) Alcohol use disorder: Status: Acute Code(s): F10.90 - Alcohol use, unspecified, uncomplicated Plan Patient is a 38-year-old female with history of MDD, ZAINAB and alcohol use d/o, who presented [place] [facility] [place] she was walked over from [facility] due to suicidal and homicidal ideation secondary to life stressors. Plan: CV 15 minute safety checks CIWA Continue home medications Obtain collateral Start: Seroquel 25mg PO daily Seroquel 50mg PO bedtime Encourage groups Referral to outpatient psychiatric prescriber Discharge planning 11/12/23 CTP 11/13/23- CTP 11/13: Attending groups. Pt continues to report feeling sad today. Pt reports suicidal and homicidal ideation towards mother. Pt stated, the medication is helping and the thoughts are not as frequent. But it's still on my mind . She reports feeling alcohol withdrawal symptoms improving. denies AH/VH. 11/14: Active on unit, social with peers. Attending groups. Pt continues to report feeling depressed but improving ; pt stated, I'm feeling better than yesterday. I'm starting to feel more hopeful . Pt continues to report suicidal ideation with no plan; pt stated, the thoughts are becoming less frequent . She continues to report homicidal ideation towards mother; pt stated, I don't think about it in a hurtful way. It's so that she wouldn't have to go through the pain of not having me in her life. I plan on talking with her about it tonight when she visits and work through why I feel this way . denies AH/VH. Denies withdrawal symptoms. DC CIWA. Change Seroquel to 75mg PO bedtime Start: clonidine 0.1mg PO BID 11/15: Pt continues to report feeling depressed but improving ; pt stated, I talked to my mom yesterday about the homicidal thoughts I was having. She was trying to blame herself but we talked about it and she is happy that I came here for help . Patient reports she continues to have suicidal ideation but states that she is not thinking about it as often. She also reports some homicidal ideation but feels that that is starting to go away . Patient reports she feels clonidine has been helpful with her anxiety throughout the day. denies AH/VH. Continue current treatment plan. 11/16: Pt reports feeling better today' pt stated, it's helpful having people to talk to about what I'm thinking and feeling. My mom has been supportive and I'm trying to be comfortable with being alone and enjoying my own company . Pt reports she is working on a coping skills list for when she is discharged. She reports she is no longer having homicidal ideation; pt stated, the thoughts went away after I spoke to my mom about how I'm feeling and how she can help . Patient continues to have suicidal ideation but states that she is not thinking about it as often. denies AH/VH. Continue current treatment plan. 11/17: Pt reports feeling better today' pt stated, I'm feeling overall a lot better. I'm less anxious about life in general. I'm not thinking of suicide as a solution to my problems anymore . She continues to work on a coping skills list for when she is discharged. denies SI/HI/VH/AH. Planning to return to [facility] after discharged. Continue current tx plan. Patient educated on: diagnosis, medication risk/benefits and therapeutic strategies Reason for continued inpatient stay Substantial Risk for: med/psych decompensation Time Spent With Patient Time: Total time managing care of this patient today _30___ minutes.
[2023-11-18 20:14] VITALS: BP 116/70; PULSE 71; RESP 16; TEMP 36.6; O2SAT 98
[2023-11-18] MEDS: QUEtiapine Fumarate 25 MG TABLET 75 MG PO (21:09)
[2023-11-18] MEDS: Montelukast Sodium 10 MG TABLET PO (21:09)
[2023-11-18 21:10] VITALS: BP 120/66
[2023-11-18] MEDS: Melatonin 3 MG TABLET 9 MG PO (21:14)
[2023-11-19 07:27] VITALS: BP 107/53; PULSE 62; RESP 14; TEMP 36.1; O2SAT 100
[2023-11-19 11:00] VITALS: BP 117/63
[2023-11-19] MEDS: PARoxetine HCL 40 MG TABLET PO (11:00)
[2023-11-19] MEDS: cloNIDine HCL 0.1 MG TABLET PO ×2 (11:00→22:32)
[2023-11-19] MEDS: PARoxetine HCL 20 MG TABLET PO (11:01)
--- NOTE | 2023-11-19 19:52 | P.PNPSI_ITS ---
Subjective Subjective Date of Service: 11/19/23 Reason For Visit: crisis Interim History: calm, cooperative, pleasant. poor sleep due to cold and CPAP. denies anxiety, depression, SI. planning to start PHP 12/14. discharging tuesday. per staff, overly bright affect. visible. +meds. wants PHP. slept 7.5 hours. Mental Status Exam Mental Status Exam Narrative: Pt is alert and oriented; behavior is cooperative, friendly and calm; dressed in casual attire; mood is described as better ; eye contact appropriate; Speech is normal rate, volume and not pressured; thought process is organized; Thought content is on tx; otherwise pertinent to relevant topics and without any delusional content, paranoid ideations or grandiosity; denies SI/HI/AH/VH. Diagnostics Vital Signs (24Hr): Vital Signs - 24 hr 11/18/23 20:14 11/18/23 21:10 11/19/23 07:27 Temperature 97.9 F 96.9 F Pulse Rate 71 62 Respiratory Rate 16 14 Blood Pressure 116/70 120/66 107/53 L Pulse Oximetry 98 100 Oxygen Delivery Method Room Air Room Air 11/19/23 11:00 Temperature Pulse Rate Respiratory Rate Blood Pressure 117/63 Pulse Oximetry Oxygen Delivery Method BMI result Body Mass Index 25.8 Labs 11/10/23 15:21 11/12/23 08:21 Medications Medications Current Medications Al Hydroxide/Mg Hydroxide (Magnesium Hydrox/Alum Hydrox 30 Ml Oral.Susp) 30 ml PO Q6H PRN PRN Reason: Heartburn/Nausea Last Admin: 11/16/23 20:06 Dose: 30 ml Clonidine HCl (Clonidine Hcl 0.1 Mg Tablet) 0.1 mg PO BID [facility]; Protocol Last Admin: 11/19/23 11:00 Dose: 0.1 mg Hydroxyzine HCl (Hydroxyzine Hcl 25 Mg Tablet) 25 mg PO Q6H PRN PRN Reason: Anxiety Ibuprofen (Ibuprofen 400 Mg Tablet) 400 mg PO Q6H PRN PRN Reason: Pain, Mild (Pain Scale 1-3) Magnesium Hydroxide (Milk Of Magnesia 30 Ml Oral.Susp) 30 ml PO DAILY PRN PRN Reason: Constipation Melatonin (Melatonin 3 Mg Tablet) 9 mg PO BEDTIME PRN PRN Reason: Insomnia Last Admin: 11/18/23 21:14 Dose: 9 mg Montelukast Sodium (Montelukast Sodium 10 Mg Tablet) 10 mg PO BEDTIME [facility] Last Admin: 11/18/23 21:09 Dose: 10 mg Nicotine Polacrilex (Nicotine Polacrilex 2 Mg Gum) 4 mg BUCCAL Q2H PRN PRN Reason: Nicotine Cravings Paroxetine HCl (Paroxetine Hcl 20 Mg Tablet) 20 mg PO DAILY [facility] Last Admin: 11/19/23 11:01 Dose: 20 mg Paroxetine HCl (Paroxetine Hcl 40 Mg Tablet) 40 mg PO DAILY [facility] Last Admin: 11/19/23 11:00 Dose: 40 mg Quetiapine Fumarate (Quetiapine Fumarate 25 Mg Tablet) 75 mg PO BEDTIME [facility] Last Admin: 11/18/23 21:09 Dose: 75 mg Trazodone HCl (Trazodone Hcl 50 Mg Tablet) 50 mg PO BEDTIME MRX1 PRN PRN Reason: Insomnia Last Admin: 11/11/23 22:03 Dose: 50 mg Allergies Allergies Allergy/AdvReac Type Severity Reaction Status Date / Time acetaminophen [From Vicodin] Allergy Nausea and Verified 11/10/23 14:31 Vomiting azithromycin Allergy Nausea and Verified 11/10/23 14:31 [From Zithromax Z-Giorgio] Vomiting hydrocodone [From Vicodin] Allergy Nausea and Verified 11/10/23 14:31 Vomiting Sulfa (Sulfonamide Allergy Unknown Verified 11/10/23 14:31 Antibiotics) Assessment & Plan Assessment & Plan (1) MDD (major depressive disorder), recurrent episode: Status: Acute Code(s): F33.9 - Major depressive disorder, recurrent, unspecified (2) Alcohol use disorder: Status: Acute Code(s): F10.90 - Alcohol use, unspecified, uncomplicated Plan Patient is a 38-year-old female with history of MDD, ZAINAB and alcohol use d/o, who presented to [facility] after she was walked over from [facility] due to suicidal and homicidal ideation secondary to life stressors. Plan: CV 15 minute safety checks CIWA Continue home medications Obtain collateral Start: Seroquel 25mg PO daily Seroquel 50mg PO bedtime Encourage groups Referral to outpatient psychiatric prescriber Discharge planning 11/12/23 CTP 11/13/23- CTP 11/13: Attending groups. Pt continues to report feeling sad today. Pt reports suicidal and homicidal ideation towards mother. Pt stated, the medication is helping and the thoughts are not as frequent. But it's still on my mind . She reports feeling alcohol withdrawal symptoms improving. denies AH/VH. 11/14: Active on unit, social with peers. Attending groups. Pt continues to report feeling depressed but improving ; pt stated, I'm feeling better than yesterday. I'm starting to feel more hopeful . Pt continues to report suicidal ideation with no plan; pt stated, the thoughts are becoming less frequent . She continues to report homicidal ideation towards mother; pt stated, I don't think about it in a hurtful way. It's so that she wouldn't have to go through the pain of not having me in her life. I plan on talking with her about it tonight when she visits and work through why I feel this way . denies AH/VH. Denies withdrawal symptoms. PRISCILA FU. Change Seroquel to 75mg PO bedtime Start: clonidine 0.1mg PO BID 11/15: Pt continues to report feeling depressed but improving ; pt stated, I talked to my mom yesterday about the homicidal thoughts I was having. She was trying to blame herself but we talked about it and she is happy that I came here for help . Patient reports she continues to have suicidal ideation but states that she is not thinking about it as often. She also reports some homicidal ideation but feels that that is starting to go away . Patient reports she feels clonidine has been helpful with her anxiety throughout the day. denies AH/VH. Continue current treatment plan. 11/16: Pt reports feeling better today' pt stated, it's helpful having people to talk to about what I'm thinking and feeling. My mom has been supportive and I'm trying to be comfortable with being alone and enjoying my own company . Pt reports she is working on a coping skills list for when she is discharged. She reports she is no longer having homicidal ideation; pt stated, the thoughts went away after I spoke to my mom about how I'm feeling and how she can help . Patient continues to have suicidal ideation but states that she is not thinking about it as often. denies AH/VH. Continue current treatment plan. 11/17: Pt reports feeling better today' pt stated, I'm feeling overall a lot better. I'm less anxious about life in general. I'm not thinking of suicide as a solution to my problems anymore . She continues to work on a coping skills list for when she is discharged. denies SI/HI/VH/AH. Planning to return to [facility] after discharged. Continue current tx plan. 11/18: denies anx/dep/SI. planning to DC tues. no issues. Reason for continued inpatient stay Substantial Risk for: harm to self, inability to function and rapid decompensation Time Spent With Patient Time: Total time managing care of this patient today ____ minutes.
[2023-11-19 20:00] VITALS: BP 121/81; PULSE 82; RESP 16; TEMP 36.4; O2SAT 97
[2023-11-19 22:32] VITALS: BP 121/66
[2023-11-19] MEDS: QUEtiapine Fumarate 25 MG TABLET 75 MG PO (22:33)
[2023-11-19] MEDS: Montelukast Sodium 10 MG TABLET PO (22:33)
[2023-11-19] MEDS: Melatonin 3 MG TABLET 9 MG PO (22:36)
[2023-11-20 07:35] VITALS: BP 100/58; PULSE 66; RESP 14; TEMP 36.6; O2SAT 99
[2023-11-20 09:18] VITALS: BP 118/76
[2023-11-20] MEDS: PARoxetine HCL 20 MG TABLET PO (09:18)
[2023-11-20] MEDS: PARoxetine HCL 40 MG TABLET PO (09:18)
[2023-11-20] MEDS: cloNIDine HCL 0.1 MG TABLET PO ×2 (09:18→22:30)
--- NOTE | 2023-11-20 17:36 | P.PNPSI_ITS ---
Subjective Subjective Date of Service: 11/20/23 Reason For Visit: crisis Interim History: calm, cooperative, pleasant. feeling some tension with roommate over CPAP/sitter. not too anxious. depression in slower waves. MD noted singulair script and provided warning re mental health. per staff, dep/anx. +meds. in room most of eves. slept about 8 hours. Mental Status Exam Mental Status Exam Narrative: Pt is alert and oriented; behavior is cooperative, friendly and calm; dressed in casual attire; mood is described as better ; eye contact appropriate; Speech is normal rate, volume and not pressured; thought process is organized; Thought content is on tx; otherwise pertinent to relevant topics and without any delusional content, paranoid ideations or grandiosity; denies SI/HI/AH/VH. Diagnostics Vital Signs (24Hr): Vital Signs - 24 hr 11/19/23 20:00 11/19/23 22:32 11/20/23 07:35 Temperature 97.6 F 97.8 F Pulse Rate 82 66 Respiratory Rate 16 14 Blood Pressure 121/81 121/66 100/58 L Pulse Oximetry 97 99 Oxygen Delivery Method Room Air Room Air 11/20/23 09:18 Temperature Pulse Rate Respiratory Rate Blood Pressure 118/76 Pulse Oximetry Oxygen Delivery Method BMI result Body Mass Index 25.8 Labs 11/10/23 15:21 11/12/23 08:21 Medications Medications Current Medications Al Hydroxide/Mg Hydroxide (Magnesium Hydrox/Alum Hydrox 30 Ml Oral.Susp) 30 ml PO Q6H PRN PRN Reason: Heartburn/Nausea Last Admin: 11/16/23 20:06 Dose: 30 ml Clonidine HCl (Clonidine Hcl 0.1 Mg Tablet) 0.1 mg PO BID TANG; Protocol Last Admin: 11/20/23 09:18 Dose: 0.1 mg Hydroxyzine HCl (Hydroxyzine Hcl 25 Mg Tablet) 25 mg PO Q6H PRN PRN Reason: Anxiety Ibuprofen (Ibuprofen 400 Mg Tablet) 400 mg PO Q6H PRN PRN Reason: Pain, Mild (Pain Scale 1-3) Magnesium Hydroxide (Milk Of Magnesia 30 Ml Oral.Susp) 30 ml PO DAILY PRN PRN Reason: Constipation Melatonin (Melatonin 3 Mg Tablet) 9 mg PO BEDTIME PRN PRN Reason: Insomnia Last Admin: 11/19/23 22:36 Dose: 9 mg Montelukast Sodium (Montelukast Sodium 10 Mg Tablet) 10 mg PO BEDTIME [facility] Last Admin: 11/19/23 22:33 Dose: 10 mg Nicotine Polacrilex (Nicotine Polacrilex 2 Mg Gum) 4 mg BUCCAL Q2H PRN PRN Reason: Nicotine Cravings Paroxetine HCl (Paroxetine Hcl 20 Mg Tablet) 20 mg PO DAILY [facility] Last Admin: 11/20/23 09:18 Dose: 20 mg Paroxetine HCl (Paroxetine Hcl 40 Mg Tablet) 40 mg PO DAILY [facility] Last Admin: 11/20/23 09:18 Dose: 40 mg Quetiapine Fumarate (Quetiapine Fumarate 25 Mg Tablet) 75 mg PO BEDTIME [facility] Last Admin: 11/19/23 22:33 Dose: 75 mg Trazodone HCl (Trazodone Hcl 50 Mg Tablet) 50 mg PO BEDTIME MRX1 PRN PRN Reason: Insomnia Last Admin: 11/11/23 22:03 Dose: 50 mg Allergies Allergies Allergy/AdvReac Type Severity Reaction Status Date / Time acetaminophen [From Vicodin] Allergy Nausea and Verified 11/10/23 14:31 Vomiting azithromycin Allergy Nausea and Verified 11/10/23 14:31 [From Zithromax Z-Giorgio] Vomiting hydrocodone [From Vicodin] Allergy Nausea and Verified 11/10/23 14:31 Vomiting Sulfa (Sulfonamide Allergy Unknown Verified 11/10/23 14:31 Antibiotics) Assessment & Plan Assessment & Plan (1) MDD (major depressive disorder), recurrent episode: Status: Acute Code(s): F33.9 - Major depressive disorder, recurrent, unspecified (2) Alcohol use disorder: Status: Acute Code(s): F10.90 - Alcohol use, unspecified, uncomplicated Plan Patient is a 38-year-old female with history of MDD, ZAINAB and alcohol use d/o, who presented to [facility] after she was walked over from [facility] due to suicidal and homicidal ideation secondary to life stressors. Plan: CV 15 minute safety checks CIWA Continue home medications Obtain collateral Start: Seroquel 25mg PO daily Seroquel 50mg PO bedtime Encourage groups Referral to outpatient psychiatric prescriber Discharge planning 11/12/23 CTP 11/13/23- CTP 11/13: Attending groups. Pt continues to report feeling sad today. Pt reports suicidal and homicidal ideation towards mother. Pt stated, the medication is helping and the thoughts are not as frequent. But it's still on my mind . She reports feeling alcohol withdrawal symptoms improving. denies AH/VH. 11/14: Active on unit, social with peers. Attending groups. Pt continues to report feeling depressed but improving ; pt stated, I'm feeling better than yesterday. I'm starting to feel more hopeful . Pt continues to report suicidal ideation with no plan; pt stated, the thoughts are becoming less frequent . She continues to report homicidal ideation towards mother; pt stated, I don't think about it in a hurtful way. It's so that she wouldn't have to go through the pain of not having me in her life. I plan on talking with her about it tonight when she visits and work through why I feel this way . denies AH/VH. Denies withdrawal symptoms. PRISCILA FU. Change Seroquel to 75mg PO bedtime Start: clonidine 0.1mg PO BID 11/15: Pt continues to report feeling depressed but improving ; pt stated, I talked to my mom yesterday about the homicidal thoughts I was having. She was trying to blame herself but we talked about it and she is happy that I came here for help . Patient reports she continues to have suicidal ideation but states that she is not thinking about it as often. She also reports some homicidal ideation but feels that that is starting to go away . Patient reports she feels clonidine has been helpful with her anxiety throughout the day. denies AH/VH. Continue current treatment plan. 11/16: Pt reports feeling better today' pt stated, it's helpful having people to talk to about what I'm thinking and feeling. My mom has been supportive and I'm trying to be comfortable with being alone and enjoying my own company . Pt reports she is working on a coping skills list for when she is discharged. She reports she is no longer having homicidal ideation; pt stated, the thoughts went away after I spoke to my mom about how I'm feeling and how she can help . Patient continues to have suicidal ideation but states that she is not thinking about it as often. denies AH/VH. Continue current treatment plan. 11/17: Pt reports feeling better today' pt stated, I'm feeling overall a lot better. I'm less anxious about life in general. I'm not thinking of suicide as a solution to my problems anymore . She continues to work on a coping skills list for when she is discharged. denies SI/HI/VH/AH. Planning to return to [facility] after discharged. Continue current tx plan. 11/18: denies anx/dep/SI. planning to [place] . no issues. 11/19: not too anxious, depression in slower waves. discharge tuesday. continue current mgmt. Reason for continued inpatient stay Substantial Risk for: harm to self, inability to function and rapid decompensation Time Spent With Patient Time: Total time managing care of this patient today ____ minutes.
[2023-11-20 20:00] VITALS: BP 114/72; PULSE 83; RESP 16; TEMP 36.9; O2SAT 95
[2023-11-20 22:29] VITALS: BP 120/70; PULSE 68
[2023-11-20] MEDS: Melatonin 3 MG TABLET 9 MG PO (22:30)
[2023-11-20] MEDS: QUEtiapine Fumarate 25 MG TABLET 75 MG PO (22:30)
[2023-11-20] MEDS: Montelukast Sodium 10 MG TABLET PO (22:31)
[2023-11-21 07:46] VITALS: BP 107/54; PULSE 78; RESP 16; TEMP 36.4; O2SAT 100
[2023-11-21] MEDS: PARoxetine HCL 40 MG TABLET PO (08:42)
[2023-11-21] MEDS: PARoxetine HCL 20 MG TABLET PO (08:42)
[2023-11-21] MEDS: cloNIDine HCL 0.1 MG TABLET PO ×2 (08:42→22:40)
--- NOTE | 2023-11-21 18:23 | HO.PSYCHPN ---
Subjective Subjective Date of Service: 11/21/23 Reason For Visit: crisis Interim History: anxiety very low. getting bored. time has slowed. looking forward to returning to [facility]. per staff, social, visible. +grps. no SI/HI. slept 7 hours. Mental Status Exam Mental Status Exam Narrative: Pt is alert and oriented; behavior is cooperative, friendly and calm; dressed in casual attire; mood is described as better ; eye contact appropriate; Speech is normal rate, volume and not pressured; thought process is organized; Thought content is on tx; otherwise pertinent to relevant topics and without any delusional content, paranoid ideations or grandiosity; denies SI/HI/AH/VH. Diagnostics Vital Signs (24Hr): Vital Signs - 24 hr 11/20/23 20:00 11/20/23 22:29 11/21/23 07:46 Temperature 98.5 F 97.5 F Pulse Rate 83 68 78 Respiratory Rate 16 16 Blood Pressure 114/72 120/70 107/54 L Pulse Oximetry 95 100 Oxygen Delivery Method Room Air Room Air BMI result Body Mass Index 25.8 Labs 11/10/23 15:21 11/12/23 08:21 Medications Medications Current Medications Al Hydroxide/Mg Hydroxide (Magnesium Hydrox/Alum Hydrox 30 Ml Oral.Susp) 30 ml PO Q6H PRN PRN Reason: Heartburn/Nausea Last Admin: 11/16/23 20:06 Dose: 30 ml Clonidine HCl (Clonidine Hcl 0.1 Mg Tablet) 0.1 mg PO BID [facility]; Protocol Last Admin: 11/21/23 08:42 Dose: 0.1 mg Hydroxyzine HCl (Hydroxyzine Hcl 25 Mg Tablet) 25 mg PO Q6H PRN PRN Reason: Anxiety Ibuprofen (Ibuprofen 400 Mg Tablet) 400 mg PO Q6H PRN PRN Reason: Pain, Mild (Pain Scale 1-3) Magnesium Hydroxide (Milk Of Magnesia 30 Ml Oral.Susp) 30 ml PO DAILY PRN PRN Reason: Constipation Melatonin (Melatonin 3 Mg Tablet) 9 mg PO BEDTIME PRN PRN Reason: Insomnia Last Admin: 11/20/23 22:30 Dose: 9 mg Montelukast Sodium (Montelukast Sodium 10 Mg Tablet) 10 mg PO BEDTIME TANG Last Admin: 11/20/23 22:31 Dose: 10 mg Nicotine Polacrilex (Nicotine Polacrilex 2 Mg Gum) 4 mg BUCCAL Q2H PRN PRN Reason: Nicotine Cravings Paroxetine HCl (Paroxetine Hcl 20 Mg Tablet) 20 mg PO DAILY [facility] Last Admin: 11/21/23 08:42 Dose: 20 mg Paroxetine HCl (Paroxetine Hcl 40 Mg Tablet) 40 mg PO DAILY [facility] Last Admin: 11/21/23 08:42 Dose: 40 mg Quetiapine Fumarate (Quetiapine Fumarate 25 Mg Tablet) 75 mg PO BEDTIME [facility] Last Admin: 11/20/23 22:30 Dose: 75 mg Trazodone HCl (Trazodone Hcl 50 Mg Tablet) 50 mg PO BEDTIME MRX1 PRN PRN Reason: Insomnia Last Admin: 11/11/23 22:03 Dose: 50 mg Allergies Allergies Allergy/AdvReac Type Severity Reaction Status Date / Time acetaminophen [From Vicodin] Allergy Nausea and Verified 11/10/23 14:31 Vomiting azithromycin Allergy Nausea and Verified 11/10/23 14:31 [From Zithromax Z-Giorgio] Vomiting hydrocodone [From Vicodin] Allergy Nausea and Verified 11/10/23 14:31 Vomiting Sulfa (Sulfonamide Allergy Unknown Verified 11/10/23 14:31 Antibiotics) Assessment & Plan Assessment & Plan (1) MDD (major depressive disorder), recurrent episode: Status: Acute Code(s): F33.9 - Major depressive disorder, recurrent, unspecified (2) Alcohol use disorder: Status: Acute Code(s): F10.90 - Alcohol use, unspecified, uncomplicated Plan Patient is a 38-year-old female with history of MDD, ZAINAB and alcohol use d/o, who presented to [facility] after she was walked over from [facility] due to suicidal and homicidal ideation secondary to life stressors. Plan: CV 15 minute safety checks CIWA Continue home medications Obtain collateral Start: Seroquel 25mg PO daily Seroquel 50mg PO bedtime Encourage groups Referral to outpatient psychiatric prescriber Discharge planning 11/12/23 CTP 11/13/23- CTP 11/13: Attending groups. Pt continues to report feeling sad today. Pt reports suicidal and homicidal ideation towards mother. Pt stated, the medication is helping and the thoughts are not as frequent. But it's still on my mind . She reports feeling alcohol withdrawal symptoms improving. denies AH/VH. 11/14: Active on unit, social with peers. Attending groups. Pt continues to report feeling depressed but improving ; pt stated, I'm feeling better than yesterday. I'm starting to feel more hopeful . Pt continues to report suicidal ideation with no plan; pt stated, the thoughts are becoming less frequent . She continues to report homicidal ideation towards mother; pt stated, I don't think about it in a hurtful way. It's so that she wouldn't have to go through the pain of not having me in her life. I plan on talking with her about it tonight when she visits and work through why I feel this way . denies AH/VH. Denies withdrawal symptoms. DC CIWA. Change Seroquel to 75mg PO bedtime Start: clonidine 0.1mg PO BID 11/15: Pt continues to report feeling depressed but improving ; pt stated, I talked to my mom yesterday about the homicidal thoughts I was having. She was trying to blame herself but we talked about it and she is happy that I came here for help . Patient reports she continues to have suicidal ideation but states that she is not thinking about it as often. She also reports some homicidal ideation but feels that that is starting to go away . Patient reports she feels clonidine has been helpful with her anxiety throughout the day. denies AH/VH. Continue current treatment plan. 11/16: Pt reports feeling better today' pt stated, it's helpful having people to talk to about what I'm thinking and feeling. My mom has been supportive and I'm trying to be comfortable with being alone and enjoying my own company . Pt reports she is working on a coping skills list for when she is discharged. She reports she is no longer having homicidal ideation; pt stated, the thoughts went away after I spoke to my mom about how I'm feeling and how she can help . Patient continues to have suicidal ideation but states that she is not thinking about it as often. denies AH/VH. Continue current treatment plan. 11/17: Pt reports feeling better today' pt stated, I'm feeling overall a lot better. I'm less anxious about life in general. I'm not thinking of suicide as a solution to my problems anymore . She continues to work on a coping skills list for when she is discharged. denies SI/HI/VH/AH. Planning to return to [facility] after discharged. Continue current tx plan. 11/18: denies anx/dep/SI. planning to [place] no issues. 11/19: not too anxious, depression in slower waves. discharge tuesday. continue current mgmt. 11/20: low anxiety, feeling bored. discharge tomorrow, F/U at [facility]. Reason for continued inpatient stay Substantial Risk for: harm to self and rapid decompensation Time Spent With Patient Time: Total time managing care of this patient today ____ minutes.
[2023-11-21 20:00] VITALS: BP 129/71; PULSE 81; RESP 16; TEMP 36.9; O2SAT 99
[2023-11-21 22:33] VITALS: BP 117/60; PULSE 74
[2023-11-21] MEDS: QUEtiapine Fumarate 25 MG TABLET 75 MG PO (22:39)
[2023-11-21] MEDS: Melatonin 3 MG TABLET 9 MG PO (22:39)
[2023-11-21] MEDS: Montelukast Sodium 10 MG TABLET PO (22:40)
[2023-11-22 08:43] VITALS: BP 125/60; PULSE 71; TEMP 36.8; O2SAT 100
[2023-11-22] MEDS: cloNIDine HCL 0.1 MG TABLET PO (08:44)
[2023-11-22] MEDS: PARoxetine HCL 40 MG TABLET PO (08:44)
[2023-11-22] MEDS: PARoxetine HCL 20 MG TABLET PO (08:44)
--- NOTE | 2023-11-22 09:33 | P.DS_ITS ---
DS: Providers Provider Date of Service: 11/22/23 Date of admission: 11/11/23 11:59 Date of discharge: 11/22/23 Primary care physician: Unknown Physician Admitting clinician: Kadie Obrien Attending physician on admission: Manuel Courtney Attending physician on discharge: Manuel Courtney Discharging clinician: Kadie Obrien DS: Diagnosis Discharge Diagnosis (1) MDD (major depressive disorder), recurrent episode: Status: Acute (2) Alcohol use disorder: Status: Acute DS: Medications Discharge Medications Home Medications: Home Medications ?Medication ?Instructions ?Recorded ?Confirmed albuterol sulfate 90 mcg/actuation 2 puff inhalation Q4H PRN sob 11/09/2304/30 aerosol inhaler montelukast 10 mg tablet 10 mg PO BEDTIME 11/09/23 11/10/23 (Singulair) Previous Rx's ?Medication ?Instructions ?Recorded clonidine HCl 0.1 mg tablet 0.1 mg PO BID 30 days #60 tabs 11/22/23 melatonin 10 mg capsule 10 mg PO BEDTIME 30 days #30 caps 11/22/23 paroxetine HCl 20 mg tablet 20 mg PO DAILY 30 days #30 tabs 11/22/23 paroxetine HCl 40 mg tablet 40 mg PO DAILY 30 days #30 tabs 11/22/23 quetiapine 25 mg tablet 75 mg (3 x 25 mg) PO BEDTIME 30 11/22/23 days #90 tabs Mental Status Exam Mental Status Exam Narrative: Pt is alert and oriented; behavior is cooperative, friendly and calm; dressed in casual attire; mood is described as good ; eye contact appropriate; Speech is normal rate, volume and not pressured; thought process is organized; Thought content is on tx; otherwise pertinent to relevant topics and without any delusional content, paranoid ideations or grandiosity; denies SI/HI/AH/VH. DS: Summary Hospital Course Hospital Course: Patient is a 38-year-old female with history of MDD, ZAINAB and alcohol use d/o, who presented to [facility] after she was walked over from [facility] due to suicidal and homicidal ideation secondary to life stressors. Per crisis report, patient has been searching less painful ways to commit suicide and homicide towards her mother. She denies AH/VH. This is patient's 1st inpatient psychiatric admission. Patient reported suicidal ideation with no specific plan, however reports that she has been searching for a way to do it painlessly and to involve her mother . Patient's relationship of 4 years recently ended abruptly. She was also recently laid off from her place of employment. Patient has been seeing an out patient therapist since 2018. History of cutting in 2018. Denies history of suicidal or homicidal ideation. Patient reports she drinks 6-8 beers a night for the past month and smokes marijuana daily. UTOX positive for marijuana. During admission assessment, alert and oriented x3. Calm, cooperative and tearful. Patient reports feeling depressed; patient stated, I tried a new career and it did not work out. My partner broke up with me and I was blindsided because we talked about getting . I feel lost and hopeless. My thoughts of suicide started and I promised my mom I wouldn't do it. Then I brought my mom into it so she would not have to be without me and I would not have to be without her . Patient denies AH/VH. Patient reports she has been taking Paxil since 2018; patient stated, it helps me with my mood on a day-to-day basis but not during stressful times. It is the only medication of ever tried . Patient reports she is open to trying other medications to help with her mood while inpatient. Patient reports she would like a referral to an outpatient psychiatric provider. Plan: CV 15 minute safety checks CIWA Continue home medications Obtain collateral Start: Seroquel 25mg PO daily Seroquel 50mg PO bedtime Encourage groups Referral to outpatient psychiatric prescriber Discharge planning Attending groups. Pt continues to report feeling sad today. Pt reports suicidal and homicidal ideation towards mother. Pt stated, the medication is helping and the thoughts are not as frequent. But it's still on my mind . She reports feeling alcohol withdrawal symptoms improving. denies AH/VH. Active on unit, social with peers. Attending groups. Pt continues to report feeling depressed but improving ; pt stated, I'm feeling better than yesterday. I'm starting to feel more hopeful . Pt continues to report suicidal ideation with no plan; pt stated, the thoughts are becoming less frequent . She continues to report homicidal ideation towards mother; pt stated, I don't think about it in a hurtful way. It's so that she wouldn't have to go through the pain of not having me in her life. I plan on talking with her about it tonight when she visits and work through why I feel this way . denies AH/VH. Denies withdrawal symptoms. DC CIWA. Change Seroquel to 75mg PO bedtime Start: clonidine 0.1mg PO BID Pt continues to report feeling depressed but improving ; pt stated, I talked to my mom yesterday about the homicidal thoughts I was having. She was trying to blame herself but we talked about it and she is happy that I came here for help . Patient reports she continues to have suicidal ideation but states that she is not thinking about it as often. She also reports some homicidal ideation but feels that that is starting to go away . Patient reports she feels clonidine has been helpful with her anxiety throughout the day. denies AH/VH. Continue current treatment plan. Pt reports feeling better today' pt stated, it's helpful having people to talk to about what I'm thinking and feeling. My mom has been supportive and I'm trying to be comfortable with being alone and enjoying my own company . Pt reports she is working on a coping skills list for when she is discharged. She reports she is no longer having homicidal ideation; pt stated, the thoughts went away after I spoke to my mom about how I'm feeling and how she can help . Patient continues to have suicidal ideation but states that she is not thinking about it as often. denies AH/VH. Continue current treatment plan. Pt reports feeling better today' pt stated, I'm feeling overall a lot better. I'm less anxious about life in general. I'm not thinking of suicide as a solution to my problems anymore . She continues to work on a coping skills list for when she is discharged. denies SI/HI/VH/AH. Planning to return to [facility] after discharged. Continue current tx plan. denies anx/dep/SI. planning to [place] no issues. not too anxious, depression in slower waves. discharge tuesday. continue current mgmt. low anxiety, feeling bored. discharge tomorrow, F/U at [facility]. Patient reports feeling good and positive ; pt stated, I'm focused on my treatment and I'm feeling optimistic . Pt report she plans on following up with outpatient providers. denies SI/HI/VH/AH. Time spent discussing smoking cessation with patient: 3 to 10 minutes Status at Discharge Cognitive/behavioral status at discharge: Patient has insight and demonstrates good judgment in terms of wanting to pursue treatment. Patient has a safety plan that includes presenting to the closest ER or calling 911 if feeling unsafe. Functional status at discharge: independent ambulation Overall status at discharge: patient is back to baseline Time Spent with Patient Time attestation: Total time managing care of this patient today _30___ minutes. Time spent: Less than 30 minutes Discharge Plan Discharge Anticipated Discharge Date/Time: 11/22/23 11:00 Patient Disposition: Home, Self-Care Discharge Diagnosis: MDD, Alcohol use d/o Referrals: Partial Hospitalization Program (PHP) [Other] - 12/16/23 8:00 am (*This is your intake appointment. You will be placed on the cancellation list. Staff from [facility] will contact you if and when a sooner appointment becomes available. *If you have any questions or concerns please call Candelaria Knott intake staff at [facility] ([phone]).) Vesta Herndon DO [Other] - 1 Week ( Awaiting call back from your Primary Care Provider for follow up appt. They wi ll contact patient directly with appt time and date.) Rhoda Galeano (Therapy) [Other] - 1 Week (*Please follow up with your therapist regarding your next appointment. A voicemail was left for her in forming her of your discharge. ) Discharge Medications: New clonidine HCl 0.1 mg Tablet 0.1 mg PO BID 30 Days Qty: 60 0RF Protocol: Hold for SBP< HOLD for SBP < : 90 quetiapine 25 mg Tablet 75 mg PO BEDTIME 30 Days Qty: 90 0RF melatonin 10 mg capsule 10 mg PO BEDTIME 30 Days Qty: 30 0RF Continued montelukast [Singulair] 10 mg Tablet 10 mg PO BEDTIME albuterol sulfate 90 mcg/actuation HFA aerosol inhaler 2 puff INHALATION Q4H PRN (Reason: sob) paroxetine HCl 20 mg tablet 20 mg PO DAILY 30 Days Qty: 30 0RF paroxetine HCl 40 mg tablet 40 mg PO DAILY 30 Days Qty: 30 0RF Discontinued melatonin 10 mg Tablet 10 mg PO BEDTIME PRN (Reason: Insomnia) Patient Comments: Patient taking Melatonin 20 mg QHS for sleep OTC. Educated patient regarding dosing of this medicaton. Patietn will review with PHP presriber. Patient to reduce dose to 10 mg PRN. Discharge Orders: Discharge Order (Routine); Ordered 11/22/23 Ordered By: Kadie Obrien Diet: Regular diet Activity on Discharge: As tolerated Stand Alone Forms: Patient Portal Discharge page, Community Support Print Language: Spanish Care Plan Goals: Maintain mood and safe behaviors Take medications as prescribed Continue to pursue sobriety Practice coping skills Continue with outpatient providers and reach out to them as needed Health Concerns: Mood stability and behaviors Sobriety Plan of Treatment: Follow up with your PCP, psychiatric provider and other outpatient providers regarding above concerns Take medications as prescribed Assessment: Patient has insight and demonstrates good judgment in terms of wanting to pursue treatment. Patient has a safety plan that includes presenting to the closest ER or calling 911 if feeling unsafe. Discharge Date/Time: 11/22/23 10:10
== END 2023-11-22 10:10 | disposition home or self-care (01) | DRG 751 ==
LOC: HO.ED 17:29 → HO.PADLT16 11-11 12:24
PROVIDERS: Physician Assistant; Admitting Provider Registered Nurse; Emergency Provider Student in an Organized Health Care Education/Training Program; Responsible Provider Registered Nurse; Visit Provider Psychiatry & Neurology Psychiatry
DX: F33.9 Major depressive disorder, recurrent, unspecified (principal); R45.851 Suicidal ideations; R45.850 Homicidal ideations; F10.90 Alcohol use, unspecified, uncomplicated; Z87.891 Personal history of nicotine dependence; Z79.899 Other long term (current) drug therapy
CPT/HCPCS: 36415; 80048; 80053; 80061; 80076; 80307; 81001; 81025; 83735; 85025; 94660; 99285; S9485

== ENCOUNTER → 2023-11-11 11:59 | Outpatient (BNV) | payer OTHER, SELFPAY | PROVIDERS: Admitting Provider Registered Nurse; Emergency Provider Student in an Organized Health Care Education/Training Program; Responsible Provider Registered Nurse; Visit Provider Registered Nurse | DX: F33.2 Major depressive disorder, recurrent severe without psychotic features (principal); F10.90 Alcohol use, unspecified, uncomplicated | CPT/HCPCS: 90792; 99231; 99232; 99238 ==

== ENCOUNTER 2023-12-09 11:45 | Outpatient (RCR) | payer MEDICAID, OTHER, SELFPAY ==
[2023-11-24 11:01] VITALS: BP 100/60; PULSE 68; TEMP 36.8
[2023-11-24 11:02] VITALS: BMI 26.1
--- NOTE | 2023-11-24 11:40 | PC.ADMIT ---
Patient is a 38 year old single female who initially was referred to [facility] by her out patient therapist d/t increased depression and anxiety secondary to loss of employment and her 4.5 year relationship ending. Patient attended the program for one day on 11/09/23 and was escorted to [facility] ED on a Section 12 A after meeting with [facility] psychiatrist Dr. Parisi. Patient disclosed to Dr. Parisi SI and HI towards her mother (who she is living with currently), so they can be together. She was searching on the internet less painful ways to . She was seen by crisis and subsequently admitted to [facility] inpatient behavioral health unit from 11/16-11/22/23. Toxicology screen positive for marijuana and ETOH level less than 10. When patient was first admitted to [facility] on 11/09/23 she reported a history of binge drinking when feeling overwhelmed. Stated she has been drinking about a beer daily or every other day since the age of 24. Her alcohol use has increased since then. Stated she will drink heavily for 2-3 months then cut down to drinking a beer a day or so for the next several months. Stated for the past 2.5 weeks she was drinking 5 pints of beer with 6.2 percent alcohol each. Currently patient reports that she last drank alcohol on 11/08/23. Stated she is trying to do things differently and learning to cope with how she is feeling without using alcohol. She reports she is not interested in MAT for alcohol at this time. She is thinking about going to for more support. Patient did state that she is using marijuana and is cutting down her use by not using during the day and only using at night. Reports last use on 11/23/23 taking 5 puffs. She was given education on long and short term effects of marijuana use. Patient is alert and oriented x4. Calm and cooperative. Thoughts are clear and logical. Reports feeling better since hospitalization. Denied SI, No HI. Wants to learn healthy coping skills to deal with her emotions. She also wants to work on rebuilding her self confidence both professionally and as a person. Medications reconciled with [facility] inpatient records and per patient. Patient reports she is taking medications as prescribed.
--- NOTE | 2023-11-24 15:01 | HO.PHP ---
Client's case has been opened and reviewed in team.
--- NOTE | 2023-11-25 12:52 | P.HPPSP_ITS ---
[facility] Date of Service: 11/25/23 Chief Complaint: depression,anxiety Sources of Information: patient interviewed, chart reviewed and crisis/core team assessment reviewed [facility] Narrative: Patient is a 38-year-old female with history of MDD, ZAINAB and alcohol use d/o, who was is returning to [facility] as a stepdown from [facility] after being sectioned 12 to ED from [facility] over 2 weeks ago for SI/HI. We had met for her intake at which time she opened up about having suicidal thoughts which involved plan of taking her mother's life as well as her own as a means of sparing her mother the grief of her own and abandonment. She had been experiencing worsening depression and despair in the months prior, in the context of life stressors, job loss and abrupt ending of a 4 year relationship. She was discharged from on Tuesday, says the experience was very positive and therapeutic. She found group therapy to be helpful and is eager to continue her treatment at [facility]. She reports her mood as improved, still dealing with some depression, anxiety, but is no longer feeling hopeless and denies any further SI/HI since hospitalization. Med compliant, she is tolerating her medications, denies any side effects and is taking them Patient has been seeing an out patient therapist since 2018. History of cutting in 2018. Denies history of suicidal or homicidal ideation. Patient reports she drinks 6-8 beers a night for the past month and smokes marijuana daily. UTOX positive for marijuana. Past Psychiatric History: [facility] x1: 11/2023 to [facility]/ Initially started PHP a few weeks ago, and is returning now as stepdown from [facility] No prior PHP, detox/rehab admissions Denies SA SIB 4 yrs ago while going through divorce Therapist: Rhoda Galeano CURRENT MEDICATIONS: Paxil 60 mg qam quetiapine 75 mg qhs clonidine 0.1 mg BID prn anxiety melatonin 10 mg qhs montelukast 10 mg qd albuterol inhaler [facility] Medical History Sleep apnea Surgical History History of cholecystectomy Family History: Alcoholism Social History: Previously , 4 yrs ago. No children Was living with ex-partner in [place], who broke up with her 10/2023 She moved back to [facility] that same week Currently lives in her own house, shares her home with her mother Mother is primary support, no siblings, no other parental figure involved in her life Currently unemployed, lost job in [employer] in 09/2023 Trauma History: Denies Diagnostics Vital Signs (24Hr): BMI result Body Mass Index 26.1 Meds/Allergies Meds Home Medications ?Medication ?Instructions ?Recorded ?Confirmed ?Type albuterol sulfate 90 mcg/actuation 2 puff inhalation Q4H PRN sob 11/09/23 11/24/23 History aerosol inhaler montelukast 10 mg tablet 10 mg PO BEDTIME 11/09/23 11/24/23 History (Singulair) Allergies Allergies Allergy/AdvReac Type Severity Reaction Status Date / Time acetaminophen [From Vicodin] Allergy Nausea and Verified 11/10/23 14:31 Vomiting azithromycin Allergy Nausea and Verified 11/10/23 14:31 [From Zithromax Z-Giorgio] Vomiting hydrocodone [From Vicodin] Allergy Nausea and Verified 11/10/23 14:31 Vomiting Sulfa (Sulfonamide Allergy Unknown Verified 11/10/23 14:31 Antibiotics) Mental Status Exam Mental Status Exam Narrative: Alert, oriented, in no acute distress. Calm, cooperative, engaged. No psychomotor agitation or neurovegetative retardation. Eye contact maintained. Mood depressed, affect variable, tearful, bright at moments, mood congruent. Speech normal. Thought process linear, coherent. Thought content related to stressors, less hopelessness, denies SI or HI. No paranoia or delusional content elicited. No evidence of psychosis. Insight and judgment - fair but adequate. Assessment & Plan Assessment & Plan (1) Major depressive disorder, recurrent severe without psychotic features: Status: Acute Code(s): F33.2 - Major depressive disorder, recurrent severe without psychotic features (2) Alcohol use disorder: Status: Acute Code(s): F10.90 - Alcohol use, unspecified, uncomplicated (3) Cannabis abuse: Status: Acute Code(s): F12.10 - Cannabis abuse, uncomplicated (4) Attention or concentration deficit: Status: Acute Code(s): R41.840 - Attention and concentration deficit Plan Admit to [facility] VS reviewed: abrefile, BP 100/60; 68 bpm continue regular medications?: paroxetine 20 mg qd clonidine 0.1 mg BID prn melatonin 10 mg qhs (rx) Other medications: montelukast 10 mg qhs, albuterol inhaler Routine lab work ordered EKG, routine for baseline QTc for medication considerations UDS as indicated [facility] reviewed Continue to monitor as per protocol Patient educated on: diagnosis, medication risk/benefits and substance abuse Informed Consent: understands Reason for continued partial hosp. stay Substantial Risk for: inability to function, rapid decompensation and med/psych decompensation Certification I certify that partial hospital treatment is medically necessary due to the symptoms and problems resulting from the patient's mental illness and the failure to treat the patient at the partial hospital level of care would likely result in the patient requiring inpatient psychiatric care which could not be prevented at a less intensive level of care. Time Spent With Patient Time: Total time managing care of this patient today __60__ minutes.
--- NOTE | 2023-11-28 15:25 | HO.PHP ---
PHP staff member faxed over a referral for Med Management to [facility] for Trudytomas Olson. PHP staff member is awaiting on those appointment scheduled dates and times.
--- NOTE | 2023-12-06 09:57 | PC.NURSE ---
New PCP appointment at [facility] Office with Dr. Sherman Hawthorne on June 25, 2024 ay 8:45 am. Office Number [phone]. Address [address] [place] [address].
--- NOTE | 2023-12-06 23:52 | P.PNPSP_ITS ---
Subjective Subjective Reason For Visit: depression,anxiety Mental Status Exam Mental Status Exam Narrative: Alert, oriented, in no acute distress. Calm, cooperative, engaged. No psychomotor agitation or neurovegetative retardation. Eye contact maintained. Mood depressed, affect variable, tearful, bright at moments, mood congruent. Speech normal. Thought process linear, coherent. Thought content related to stressors, less hopelessness, denies SI or HI. No paranoia or delusional content elicited. No evidence of psychosis. Insight and judgment - fair but adequate. Diagnostics Vital Signs (24Hr): BMI result Body Mass Index 26.1 Assessment & Plan Assessment & Plan (1) Major depressive disorder, recurrent severe without psychotic features: Status: Acute Code(s): F33.2 - Major depressive disorder, recurrent severe without psychotic features (2) Cannabis abuse: Status: Acute Code(s): F12.10 - Cannabis abuse, uncomplicated (3) Alcohol use disorder: Status: Acute Code(s): F10.90 - Alcohol use, unspecified, uncomplicated Assessment and Plan: in early remission (4) Attention or concentration deficit: Status: Acute Code(s): R41.840 - Attention and concentration deficit Plan start methylphenidate 5 mg qam continue paroxetine 60 mg qd (split 40 mg in AM/ 20 mg in PM) continue clonidine 0.1 mg BID prn continue melatonin 10 mg qhs (rx) Other medications: montelukast 10 mg qhs, albuterol inhaler Reviewed recent lab work from 11/11 EKG, routine, UDS as indicated Continue to monitor Patient educated on: diagnosis, medication risk/benefits and substance abuse Informed Consent: understands Reason for contiued partial hosp. stay Substantial Risk for: inability to function, rapid decompensation and med/psych decompensation Certification I certify that partial hospital treatment is medically necessary due to the symptoms and problems resulting from the patient's mental illness and the failure to treat the patient at the partial hospital level of care would likely result in the patient requiring inpatient psychiatric care which could not be prevented at a less intensive level of care. Total time managing care of this patient today _30___ minutes. Discharge Plan Discharge Attending provider: Janie Parisi Additional Instructions: New PCP appointment at [facility] Office with Dr. Sherman Hawthorne on June 25, 2024 ay 8:45 am. Office Number [phone]. Address [address] [facility]. [facility] at [address] [place] [address] #[phone]. Medications: Continued montelukast [Singulair] 10 mg Tablet 10 mg PO BEDTIME albuterol sulfate 90 mcg/actuation HFA aerosol inhaler 2 puff INHALATION Q4H PRN (Reason: sob) clonidine HCl 0.1 mg Tablet 0.1 mg PO BID 30 Days Qty: 60 0RF Protocol: Hold for SBP< HOLD for SBP < : 90 quetiapine 25 mg Tablet 75 mg PO BEDTIME 30 Days Qty: 90 0RF melatonin 10 mg capsule 10 mg PO BEDTIME 30 Days Qty: 30 0RF paroxetine HCl 20 mg tablet 20 mg PO DAILY 30 Days Qty: 30 0RF paroxetine HCl 40 mg tablet 40 mg PO DAILY 30 Days Qty: 30 0RF methylphenidate HCl 5 mg tablet 5 mg PO BID Qty: 28 0RF Rx Instructions: Partial Fill upon patient request. Stand Alone Forms: Patient Portal Discharge page Print Language: Malaysian
--- NOTE | 2023-12-09 22:54 | P.PNPSP_ITS ---
Subjective Subjective Date of Service: 12/09/23 Reason For Visit: depression,anxiety Interim History: Patient seen for follow-up, anticipating discharge at the end of program today.? Reports no acute issues or concerns. Medication compliant, medications well- tolerated. Denies any adverse effects.? Mood is stable.? Denies any hopelessness or SI. Denies thoughts of harming self or others at this time. Denies any aggressive ideation or HI. Denies any paranoia or AH or VH. Sleep, appetite, energy stable. Alert, oriented, in no acute distress. Calm, cooperative. Mood stable, affect appropriate. Speech normal. Thought process linear, coherent, more goal- directed. Thought content related to stressors, future-oriented, denies any helplessness, hopelessness or SI.? No aggressive ideation or HI. No paranoia or delusional content elicited. No evidence of psychosis. Insight and judgment f air-good. Discharge from [facility] Continue regular medications Refills sent to pharmacy Will defer further medication management to outpatient provider *Safety plan reviewed *Discharge diagnoses, treatment course, discharge plan have been reviewed with patient (including medication regime, medication management, potential side effects) as well as treatment rationale were also revisited *Discharge paperwork signed and given to patient, copy sent for scanning to chart Medication Compliance: Yes Side effects from medications: No Attending Groups: Yes Review of Systems Acute medical concerns: No Diagnostics Vital Signs (24Hr): BMI result Body Mass Index 26.1 Assessment & Plan Certification I certify that partial hospital treatment is medically necessary due to the symptoms and problems resulting from the patient's mental illness and the failure to treat the patient at the partial hospital level of care would likely result in the patient requiring inpatient psychiatric care which could not be prevented at a less intensive level of care. Total time managing care of this patient today ____ minutes. Discharge Plan Discharge Attending provider: Janie Parisi Additional Instructions: New PCP appointment at [facility] Office with Dr. Sherman Hawthorne on June 25, 2024 ay 8:45 am. Office Number [phone]. Address [address] [facility]. [facility] Walk [facility] Clinic at [address] [place] [address] #[phone]. 12/13/2023? ?12:00 PM - 01:00 PM Urgent Care Comprehensive Assessment Adult??-In-office? Prog: [facility] Clinic Site: [address] [facility] [place], [place] Staff: LEILANI ROOT 01/11/2024? ? 09:00 AM - 10:00 AM Psychiatric E/M New - Face to Face v2-?In-office -[phone] Prog: Psychiatric Services Site: [address] [place] [address]., [place], [place]? ?? Staff: ZEENAT LOZANO Medications: Continued montelukast [Singulair] 10 mg Tablet 10 mg PO BEDTIME albuterol sulfate 90 mcg/actuation HFA aerosol inhaler 2 puff INHALATION Q4H PRN (Reason: sob) clonidine HCl 0.1 mg Tablet 0.1 mg PO BID 30 Days Qty: 60 0RF Protocol: Hold for SBP< HOLD for SBP < : 90 quetiapine 25 mg Tablet 75 mg PO BEDTIME 30 Days Qty: 90 0RF melatonin 10 mg capsule 10 mg PO BEDTIME 30 Days Qty: 30 0RF paroxetine HCl 20 mg tablet 20 mg PO DAILY 30 Days Qty: 30 0RF paroxetine HCl 40 mg tablet 40 mg PO DAILY 30 Days Qty: 30 0RF methylphenidate HCl 5 mg tablet 5 mg PO BID Qty: 28 0RF Rx Instructions: Partial Fill upon patient request. Stand Alone Forms: Patient Portal Discharge page Print Language: Ecuadorean
== END 2023-12-09 23:59 | disposition home or self-care (01) ==
LOC: HO.PHPA 11:45
PROVIDERS: Visit Provider Psychiatry & Neurology Psychiatry
DX: F33.2 Major depressive disorder, recurrent severe without psychotic features (principal); F10.90 Alcohol use, unspecified, uncomplicated; F12.10 Cannabis abuse, uncomplicated; R41.840 Attention and concentration deficit; Z79.899 Other long term (current) drug therapy
CPT/HCPCS: 90791; 90853

== ENCOUNTER 2024-07-27 12:26 | Outpatient (AMB) | payer BC, SELFPAY ==
--- NOTE | 2024-07-27 12:28 | A.OFFPC_ITS ---
Vital Signs 07/27/24 12:33 Height 5 ft 2.99 in Weight 150 lb BMI 26.6 BP 118/64 Blood Pressure Location Lt brachial Position Sitting Respiration 12 Pulse 90 Pulse Source Pulse Oximeter Temp 98.9 F Temp Source Oral Pulse Oximetry (%) 99 Oxygen Delivery Method Room Air Intake Visit Reasons: New Appt New Patient requesitng an PE Intake Note: New patient visit Allergies acetaminophen (From Vicodin) Allergy (Verified 07/27/24 13:15) Nausea and Vomiting azithromycin (From Zithromax Z-Giorgio) Allergy (Verified 07/27/24 13:15) Nausea and Vomiting hydrocodone (From Vicodin) Allergy (Verified 07/27/24 13:15) Nausea and Vomiting Sulfa (Sulfonamide Antibiotics) Allergy (Verified 07/27/24 13:15) Unknown Medication List - Last Reconciled 07/27/24 by Maggi Nur, CHILD & ADOLESCENT PSYCHIATRIST- albuterol sulfate 90 mcg/actuation 2 puffs inhalation Q4H PRN clonidine HCl 0.1 mg See Protocol PO BID 30 days melatonin 10 mg PO BEDTIME 30 days methylphenidate HCl 5 mg PO BID paroxetine HCl 20 mg PO DAILY 30 days paroxetine HCl 40 mg PO DAILY 30 days quetiapine 75 mg (3 x 25 mg) PO BEDTIME 30 days Tobacco use date assessed: 07/27/24 Dental Screening Dental Screen Date: 07/27/24 Did you have a dental visit in the last 12 months?: No Did you have a dental problem in the last 6 months where you did not have access to dental care?: No Was dental information given to patient?: Patient has dentist HPI HPI Comments History of Present Illness Details 38-year-old female with MDD, ZAINAB, alcoh ol use d/o, ADHD, Asthma, Seasonal allergies, DEREK on CPAP , family hx of melanoma (dad), family hx of breast ca (PGM), family hx of colon ca (MGF) Psych admission: 11/2023 s/p gallbladder, wisdom teeth removal Fhx: Mom w/ gb removal, Dad skin ca (melanoma), PGM breast ca in 40's, MGF with colon CA, MGM with Alz. 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 DEREK on CPAP dx April 2023 tolerant and compliant Alcohol - cont to use socially. to help loneliness less drinking at home alone Work in progress Asthma well controlled on prn CONNER Allergies - stopped singulair d/t mood; taking zyrtec and doing fine . Exam General: Well developed, well nourished, in no acute distress. Appears stated age. Head: Normocephalic, atraumatic. Eyes: Pupils are equal, round and reactive to light and accommodation. Conjunctivae are clear. Vision grossly normal. Ears: TMs clear AU, EACS WNL Nose: Patent, without discharge. Mouth: There are no ulcers or lesions noted. No inflammation, no post nasal drip, no plaques nor exudates. Neck: Supple, no adenopathy or thyromegaly. Breast: Edu on SBE Lungs: Clear to auscultation bilaterally. No rales, rhonchi or wheeze noted. Good air flow in all valentine. Heart: Regular rate and rhythm. No murmurs, click, rubs or gallops are noted. Abdomen: Bowel sounds present in all quadrants. The abdomen is soft, nontender, with no masses or organomegaly noted. No hernias are noted. Musculoskeletal: Joints are nontender, without swelling, redness, or effusions. Range of motion is observed to be normal. Pulses: Peripheral pulses are equal and palpable bilaterally. Extremities: No clubbing, cyanosis nor edema is noted. Neurologic: Gait and station normal. Cranial Nerves 2-12 intact. Motor strength grossly symmetrical and intact. No sensory loss. Balance normal. Skin: No rashes, ulcers, or lesions noted. Turgor is good. Skin color is good. Hair and nails are without abnormalities. Psych: Normal eye contact, affect and mood appropriate, and normal interactions. Patient is alert and appropriate to context. 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 This includes time spent before the visit reviewing the chart, time spent during the visit, and time spent after the visit on documentation reviewing laboratory results, diagnostic imaging, medications, performing a medically necessary evaluation, counseling on diagnoses, care coordination, ordering appropriate tests, ordering appropriate medications, review of tests performed by other providers, reporting test results with the patient, communication with other healthcare providers. [facility] Medical History Sleep apnea Surgical History History of cholecystectomy Family History (Updated 07/27/24 @ 12:37 by Fabiana Mckeon CMA) Other Substance abuse Social History (Updated 07/27/24 @ 12:37 by Fabiana Mckeon CMA) Household Members: Family Household Members Other:: lives with mother Housing: House Do you presently have visiting nurse or other home services: No Alcohol intake: current Patient Tobacco Use Status: Former Tobacco user Cigarettes Per Day: 6 Years Smoked: 6 e-Cigarette/Vaping Use: Never Used Second Hand Smoke Exposure: No Substance Use Type: Marijuana service: No Current occupational status: employed Current occupation: [employer] Current occupational exposures/hazards: Yes Sexual orientation: Lesbian/Bear/Homosexual Cognitive needs: No Hearing needs: No Vision needs: No Questionnaire PHQ-9 Over the last 2 weeks, how often have you been bothered by any of the following problems? 1. Little interest or pleasure in doing things: several days 2. Feeling down, depressed, or hopeless: several days 3. Trouble falling or staying asleep, or sleeping too much: not at all 4. Feeling tired or having little energy: not at all 5. Poor appetite or overeating: several days 6. Feeling bad about yourself - or that you are a failure or have let yourself or your family down: not at all 7. Trouble concentrating on things, such as reading the newspaper or watching television: not at all 8. Moving or speaking so slowly that other people could have noticed. Or the opposite - being so fidgety or restless that you have been moving around a lot more than usual: not at all 9. Thoughts that you would be better off or of hurting yourself in some way: not at all Total score: 3 Depression Screening Interpretation: Negative Depression Screening Done: Yes 45019 - PHQ-9 Billing: Yes Source: Developed by Drs. Gino Worthy, Beatrice Thakur, Wero Shields and colleagues, with an educational babs from [employer]. Thrive Questionnaire Date Thrive assessed: 07/27/24 I am a: Patient What is your living situation today?: I have a steady place to live Within the past 12 months, did the food you bought not last and you didn't have the money to get more?: Never true Within the past 12 months, did you worry whether your food would run out before you got money to buy more?: Never true Do you have trouble paying for medicines?: No Do you have trouble getting transportation to medical appointments?: No Do you have trouble paying your heating and electricity bill?: No Do you have trouble taking care of your child, family member or friend?: No Do you have trouble with day-to-day activities such as bathing, preparing meals, shopping, managing finances, etc.?: No Are you currently unemployed and looking for a job?: No Are you interested in more education?: No Please select the resources that you would like help with: None Currently or been in a relationship where the following occur: No concerns reported THRIVE Score: 0 AUDIT C Alcohol Use Questionnaire (AUDIT-C) 1. How often do you have a drink containing alcohol?: 4 or more times a week 2. How many drinks containing alcohol do you have on a typical day when you are drinking?: 3 or 4 3. How often do you have six or more drinks on one occasion?: Monthly Total Score: 7 Score Reviewed/Action Taken: Yes ZAINAB-7 AMB Questionnaire ZAINAB-7 Date ZAINAB - 7 assessed: 07/27/24 Feeling nervous, anxious, or on edge: 1 = Several days Not being able to stop or control worryin = Several days Worrying too much about different things: 1 = Several days Trouble relaxin = Not at all Being so restless that it is hard to sit still: 0 = Not at all Becoming easily annoyed or irritable: 0 = Not at all Feeling afraid as if something awful might happen: 0 = Not at all Total ZAINAB-7 score (0-4 normal; 5-9 mild; 10-14 moderate; 15-21 severe): 3 Source: Developed by Drs. Gino Worthy, Beatrice Thakur, Wero Shields and colleagues, with an educational babs from [employer]. ZAINAB-7 Assessment Billing ZAINAB-7 Assessment Tool: ZAINAB-7 Assessment 26922 ACT Questionnaire In the past 4 weeks, how much of the time did your asthma keep you from getting as much done at work, school or at home?: None of the time During the past 4 weeks, how often have you had shortness of breath?: Not at all During the past 4 weeks, how often did your asthma symptoms wake you up at night or earlier than usual in the morning?: Not at all During the past 4 weeks, how often have you had to use your rescue inhaler or ne bulizer medication?: Not at all How would you rate your asthma control during the past 4 weeks?: Well controlled ACT Interpretation: Negative Score: 24 Physical exam (Primary Care) Vital Signs: Last Vital Signs Temp 98.9 F 07/27/24 12:33 Pulse 90 07/27/24 12:33 Resp 12 07/27/24 12:33 BP 118/64 07/27/24 12:33 Pulse Ox 99 07/27/24 12:33 Oxygen Delivery Method Room Air 07/27/24 12:33 BMI result Body Mass Index 26.6 Tobacco/Smoking Status: Tobacco use Status Tobacco use date assessed 07/27/24 07/27/24 12:35 Patient Tobacco Use Status Former Tobacco user 07/27/24 12:37 e-Cigarette/Vaping Use Never Used 07/27/24 12:37 PHQ-9: PHQ-9 Score PHQ-9: Total score 3 07/27/24 12:39 Depression Screening Interpretation: Negative Thrive Assessment: Date of Thrive Assessment Date Thrive assessed 07/27/24 07/27/24 12:39 Currently or been in a relationship where the following occur: No concerns reported Coding Level of Care Code New Pt Level 4 (31067) New Pt Prev Care 18-39yr(06616 Diagnoses Encounter to establish care Z76.89 Severe episode of recurrent major depressive disorder, without psychotic features F33.2 Major depression episode severity: severe Psychotic features: without psychotic features Attention deficit hyperactivity disorder (ADHD), predominantly inattentive type F90.0 Attention deficit-hyperactivity disorder type: predominantly inattentive Alcohol use disorder F10.90 Mild intermittent asthma without complication J45.20 Asthma complication type: uncomplicated Environmental allergies Z91.09 DEREK on CPAP G47.33 Family hx of melanoma Z80.8 Skin cancer screening Z12.83 Family history of colon cancer Z80.0 Family history of breast cancer Z80.3 Congenital eye disorder Q15.9 Encounter for general adult medical examination with abnormal findings Z00.01 Additional Codes ZAINAB-7 Assessment Billing - ZAINAB-7 Assessment Tool: ZIANAB-7 Assessment 11320 ([id number]) PHQ-9 - 91465 - PHQ-9 Billing: Yes ([id number]) Asthma Control Questionnaire - ACT Interpretation: Negative ([id number]) Assessment & Plan Assessment & Plan (1) Encounter to establish care: Code(s): Z76.89 - Persons encountering health services in other specified circumstances (2) MDD (major depressive disorder), recurrent episode: Code(s): F33.9 - Major depressive disorder, recurrent, unspecified Category: Medical Qualifiers: Major depression episode severity: severe Psychotic features: without psychotic features Qualified Code(s): F33.2 - Major depressive disorder, recurrent severe without psychotic features (3) ADHD: Code(s): F90.9 - Attention-deficit hyperactivity disorder, unspecified type Category: Medical Qualifiers: Attention deficit-hyperactivity disorder type: predominantly inattentive Qualified Code(s): F90.0 - Attention-deficit hyperactivity disorder, predominantly inattentive type (4) Alcohol use disorder: Code(s): F10.90 - Alcohol use, unspecified, uncomplicated Category: Medical (5) Mild intermittent asthma: Code(s): J45.20 - Mild intermittent asthma, uncomplicated Category: Medical Qualifiers: Asthma complication type: uncomplicated Qualified Code(s): J45.20 - Mild intermittent asthma, uncomplicated (6) Environmental allergies: Code(s): Z91.09 - Other allergy status, other than to drugs and biological substances Category: Medical (7) DEREK on CPAP: Comment: [facility] sleep study april 2023 Code(s): G47.33 - Obstructive sleep apnea (adult) (pediatric) Category: Medical (8) Family hx of melanoma: Comment: dad Code(s): Z80.8 - Family history of malignant neoplasm of other organs or systems Category: Medical (9) Skin cancer screening: Code(s): Z12.83 - Encounter for screening for malignant neoplasm of skin Category: Medical (10) Family history of colon cancer: Code(s): Z80.0 - Family history of malignant neoplasm of digestive organs Category: Medical (11) Family history of breast cancer: Code(s): Z80.3 - Family history of malignant neoplasm of breast Category: Medical (12) 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, 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 Code(s): Q15.9 - Congenital malformation of eye, unspecified Category: Medical (13) Encounter for general adult medical examination with abnormal findings: Code(s): Z00.01 - Encounter for general adult medical examination with abnormal findings Category: Medical Plan , Orders: Orders MM tomosynthesis screening BI Today Z12.31 - Encounter for screening mammogram for malignant neoplasm of breast Referrals FINISH INSPECTOR Referral Z12.4 - Encounter for screening for malignant neoplasm of cervix Dermatology Referral Z12.83 - Encounter for screening for malignant neoplasm of skin, Z80.8 - Family history of malignant neoplasm of other organs or systems Medications: New albuterol sulfate 90 mcg/actuation 2 puffs inhalation Q4H PRN 6.7 grams 1RF sob Changed From paroxetine HCl 40 mg PO DAILY 30 days 30 tabs 0RF To paroxetine HCl 40 mg PO DAILY 90 tabs 2RF From paroxetine HCl 20 mg PO DAILY 30 days 30 tabs 0RF To paroxetine HCl 20 mg PO DAILY 90 tabs 2RF Patient Instructions: Walk-In Care (Urgent Care): We Make it Easy Walk-in for urgent medical issues such as: ? Seasonal Allergies ? Insect Bites ? Cough ? Diarrhea ? Acute Asthma Attacks ? Back, Knee or Joint Pain ? Ear Infection ? Fever without a Rash ? Headaches ? Nausea ? [place] [facility], Rash or Skin Irritation ? Sore Throat ? Sports Physicals ? Vomiting Most insurances are accepted. Patients do not need to be part of the [facility] to seek care at the walk-in clinic. Locations [address] [place] [address] [place] [address] ? [phone] [facility] Walk-In Care in [place] provides services to ages 18 and over. Open Tuesday-Tuesday: 8 a.m. to 5 p.m. and Tuesday: 9 a.m. to 3 p.m.* *Hours may vary due to staffing availability. To confirm Walk-In Care hours in [place], please call [phone]. [address] [place] [address] ? [phone] [facility] Walk-In Care in [place] provides services to ages 12 and over. Open Tuesday-Tuesday: 8 a.m. to 5 p.m. Hours may vary due to staffing availability. To confirm Walk-In Care hours in [place], please call [phone]. LABORATORY SERVICES: [facility] Lab ? Primary Location [address] [place] [address] Tuesday through Tuesday 6:00 AM ? 5:00 PM Tuesday 7:00 AM ? 11:00 AM* [phone] The [facility] Lab is centrally located near the front entrance of the [facility] for easy outpatient access. Convenient parking is provided for outpatients. *Hours may vary due to staffing availability. To confirm Laboratory hours for any location, please call [phone]. Offsite Location For your convenience, we offer offsite laboratory draw stations at the following locations: [address] [place] [address] ? [address], [address] Tuesday through Tuesday 7:30 AM ? 1:00 PM* [phone] *Hours may vary due to staffing availability. To confirm Laboratory hours for any location, please call [phone]. [place] ? [address] Tuesday through Tuesday 6:00 AM ? 3:30 PM* Tuesday 6:30 AM ? 3 PM* [phone] *Hours may vary due to staffing availability. To confirm Laboratory hours for any location, please call [phone] [place] [address] Tuesday through Tuesday 7:30 AM ? 4:00 PM* [phone] *Hours may vary due to staffing availability. To confirm Laboratory hours for any location, please call [phone] [place] [address] Tuesday through 9:00 AM ? 4:00 PM* *Hours may vary due to staffing availability. To confirm Laboratory hours for any location, please call [phone]. Appointments are not necessary. Walk-ins are welcome. Like all the departments throughout the [facility], our Lab undergoes frequent reviews to ensure the quality and accuracy of test results, and our staff takes special pride in its status as a nationally accredited facility. Patient Portal: ONE PATIENT. ONE RECORD. BETTER CARE. [facility] has a fully integrated, cutting- edge mobile electronic health information system that has revolutionized the way we care for our patients and manage our organization. This system improves communication and coordination enabling us to provide safe, higher-quality care, and an overall positive experience for staff and patients. Our first priority, as always, is to deliver the highest quality care possible. The system is running in the background supporting that priority. This portal is for all [facility] and [facility] services and practices. If you are experiencing any technical difficulties with enrolling or logging into the Patient Portal please complete the [facility] Patient Portal Technical Support Form. [facility] now offers a new secure on-line interactive tool for patients to review their health information ? ?Patient Portal. This interactive web portal will enable patients and their families to take an active role in their care by providing easy, secure access to their health information via the internet. The Patient Portal provides patients with instant access to their health information, including laboratory results, medications, allergies, demographic information, visit history, and more. In addition to managing their own care, parents and health care proxies with authorized consent will appreciate the ability to access the records of those individuals for whom they provide care. Please note: if you wish to gain access (Proxy) to another patient?s portal, you will be required to come to the Medical Records Department in person at [facility]. Both the patient giving proxy access and the proxy will need to provide photo identification and complete the appropriate authorization. The Patient Portal also allows track their appointments online. The [facility] Patient Portal also saves patients time by allowing them to submit updates to their demographic and contact information prior to their visits. Portal email notifications will also alert patients to any new activity on their portal, such as test results and new appointments. In order to initially enroll in the [facility] Patient Portal, you will need to enter some required information including the following: * your [facility] Medical Record number * your personal home email address * name * date of Please note: In order to enroll in the [facility] Patient Portal, we need to have your email address on file in your electronic medical record. ?The email address needs to be specific for one person (yourself) in order for your Portal enrollment to be successful. ?You can update your email address in person with our Registration staff when you are registering for a hospital visit. ?Otherwise, you will need to come to the Health Information Management (Medical Records) Department at [facility]. ?We are open from Tuesday ? Tuesday from 7:30 a.m. ? 4:30 p.m. ?You will be required to present a photo id. Once you have successfully enrolled in the Patient Portal, you will receive a on e-time user id and password for the Portal, sent to your email address. ?This will allow you to log into the Patient Portal within 99 hrs and reset your own logon id and password, and define personal security questions. ?Once your permanent login and password have been set, you can log into the [facility] Patient Portal at any time via the blue button above or from the Portal Logon button on any page of the [facility] website. [facility] and [facility] encourage all of our patients to enroll in Patient Portal as it presents a valuable opportunity for patients and their families to actively participate in their care and stay healthy Welcome to [facility]. ?We look forward to working with you. Health screenings for women You should visit your health care provider from time to time, even if you are healthy. The purpose of these visits is to: Screen for medical issues Assess your risk for future medical problems Encourage a healthy lifestyle Update vaccinations and other preventive care services Help you get to know your provider in case of an illness Information Even if you feel fine, you should still see your provider for regular checkups. These visits can help you avoid problems in the future. For example, the only way to find out if you have high blood pressure is to have it checked regularly. High blood sugar and high cholesterol levels also may not have any symptoms in the early stages. A simple blood test can check for these conditions. There are specific times when you should see your provider or receive specific health screenings. The [place] Preventive Services Task Force publishes a list of recommended screenings. Below are screening guidelines for women ages 18 to 39. BLOOD PRESSURE SCREENING Your blood pressure should be checked at least once every 3 to 5 years if: Your blood pressure is in the normal range (top number less than 120 mm Hg and bottom number less than 80 mm Hg) You don't have risk factors for high blood pressure Ask your provider if you need your blood pressure checked more often if: The top number is 120 to 129 mm Hg or the bottom number is 70 to 79 mm Hg You have diabetes, heart disease, kidney problems, are overweight, or have certain other health conditions You have a first-degree relative with high blood pressure You are Black You had high blood pressure during a If the top number is 130 mm Hg or greater or the bottom number is 80 mm Hg or greater, this is considered stage 1 hypertension. Schedule an appointment with your provider to learn how you can reduce your blood pressure. Watch for blood pressure screenings in your area. Ask your provider if you can stop in to have your blood pressure checked. BREAST CANCER SCREENING Experts do not agree about the benefits of breast self-exams in finding breast cancer or saving lives. Talk to your provider about what is best for you. A screening mammogram is not recommended for most women under age 40. Your provider may discuss and recommend mammograms, MRI scans, or ultrasounds if you have an increased risk for breast cancer, such as: A mother or sister who had breast cancer at a young age (most often starting screening earlier than the age the close relative was diagnosed) You carry a high-risk genetic marker CERVICAL CANCER SCREENING Cervical cancer screening should start at age 21 years unless your provider advises otherwise. After the first test: Women ages 21 through 29 should have a Pap test every 3 years. Exoprts do not agree on whether HPV testing is recommended for this age group. Women ages 30 through 65 should be screened with either a Pap test every 3 years or the HPV test every 5 years or both tests every 5 years (called cotesting ). Women who have been treated for precancer (cervical dysplasia) should continue to have Pap tests for 20 years after treatment or until age 65, whichever is longer. If you have had your uterus and cervix removed (total hysterectomy), and you h ave not been diagnosed with cervical cancer or precancer (high grade cervical neoplasia), you do not need cervical cancer screening. CHOLESTEROL SCREENING Cholesterol screening should begin at: Age 45 for women with no known risk factors for coronary heart disease Age 20 for women with known risk factors for coronary heart disease Repeat cholesterol screening should take place: Every 5 years for women with normal cholesterol levels More often if changes occur in lifestyle (including weight gain and diet) More often if you have diabetes, heart disease, kidney problems, or certain other conditions DIABETES SCREENING You should be screened for diabetes starting at age 35 and then repeated every 3 years if you have no risk factors for diabetes. Screening may need to start earlier and be repeated more often if you have other risk factors for diabetes, such as: You have a first degree relative with diabetes. You are overweight or have obesity. You have high blood pressure, prediabetes, or a history of heart disease. Screening for diabetes should be done if you are planning to become and you are overweight and have other risk factors such as high blood pressure. DENTAL EXAM Go to the dentist once or twice every year for an exam and cleaning. Your dentist will evaluate if you need more frequent visits. EYE EXAM Have an eye exam every 5 to 10 years before age 40. If you have vision problems, have an eye exam every 2 years or more often if recommended by your provider. You should have an eye exam that includes an examination of your retina (back of your eye) at least every year if you have diabetes. IMMUNIZATIONS Commonly needed vaccines include: Flu shot: get one every year. COVID-19 vaccine: ask your provider what is best for you. Tetanus-diphtheria and acellular pertussis (Tdap) vaccine: have one at or after age 19 as one of your tetanus-diphtheria vaccines if you did not receive it as an adolescent. Tetanus-diphtheria: have a booster (or Tdap) every 10 years. Varicella vaccine: receive 2 doses if you never had chickenpox or the varicella vaccine. Hepatitis B vaccine: receive 2, 3, or 4 doses, depending on your exact circumstances. Measles, mumps, and rubella (MMR) vaccine: receive 1 to 2 doses if you are not already immune to MMR. Your provider can tell you if you are immune. Ask your provider about the human papillomavirus (HPV) vaccine if: You have not received the HPV vaccine in the past You have not completed the full vaccine series (you should catch up on this shot) Ask your provider if you should receive other immunizations if you have certain health problems that increase your risk for some diseases such as pneumonia. INFECTIOUS DISEASE SCREENING Women who are sexually active should be screened for chlamydia and gonorrhea up until age 25. Women 25 years and older should be screened for chlamydia and gonorrhea if at high risk. Screening for hepatitis C: All adults ages 18 to 79 should get a one-time test for hepatitis C. people should be screened at every . Screening for human immunodeficiency virus (HIV): All people ages 15 to 65 should get a one-time test for HIV. Depending on your lifestyle and medical history, you may also need to be screened for infections such as syphilis and HIV, as well as other infections. PHYSICAL EXAM All adults should visit their provider from time to time, even if they are healthy. The purpose of these visits is to: Screen for disease Assess your risk of future medical problems Encourage a healthy lifestyle Update your vaccinations and other preventive care services Maintain a relationship with a provider in case of an illness Your height, weight, and BMI should be checked at every exam. During your exam, your provider may ask you about: Depression and anxiety Diet and exercise Alcohol and tobacco use Safety issues, such as using seat belts, smoke detectors, and intimate partner violence Your medicines and risk for interactions SKIN SELF-EXAM Your provider may check your skin for signs of skin cancer, especially if you're at high risk, such as if you: Have had skin cancer before Have close relatives with skin cancer Have a weakened immune system OTHER SCREENING Talk with your provider about colon cancer screening if you have a strong family history of colon cancer or polyps, or if you have had inflammatory bowel disease or polyps yourself. Routine bone density screening of women under 40 is not recommended.
--- OUTSIDE RECORDS SUMMARY | 2024-07-27 12:29 | XMS_ITS | Data Portability ---
Author Organization [place] - [facility], [facility] Address [address] [address] Care Team Providers Care Vp [employer] Name Role Phone JAYDA SHOEMAKERIA Primary Care Provider [phone] Assessment No assessment recorded. Plan of Treatment Reminders Order Date Submit Date Provider Last Modified By Organization Details Last Modified Time Details Appointments None recorded. Lab None recorded. Referral physical therapist referral - Patellofemo ral syndrome left kneeFlexibi lity of quadriceps hamstrings and iliotibial bandRollers over quadriceps and iliotibial bandUltraso und over patellar tendonEccen tric strengtheni ng of quadriceps with leg pressBike program1-2 times a week for 6 weeks 2022 023 [email or web address] Not available 3 07:43:36 Procedures None recorded. Surgeries None recorded. Imaging None recorded. Medication Orders None recorded. Patient TargetsNo targets recorded. Patient Instructions Encounter Date Encounter Id Patient Instructions Last Modified By Organization Details Last Modified Time 10/07/2022 [id number] X-rays of the left knee obtained at [place] do not reveal any significant arthritis or fractures She is complaining of a 1 year history of recurrent pain in the anterior medial portion of her knee after she fell directly onto her knee. She does have some sensitivity to touch over the superficial portion of this may be more of a near irritation than anything else. She does also have some pain that is referable to her patellar tendon. I am going to start her on physical therapy. If she does not see meaningful relief we could check an MRI to see if there is a deep bone bruise that is holding her back from healing but overall she was looking for reassurance that she is not causing any damage. She has no effusion her range of motion is normal so I think she should get better with physical therapy alone. I will leave follow-up open-ended. [email or web address] Not available 10/07/2022 15:38:29 Reason for Referral Physical Therapist Referral for Patellofemoral syndrome of left knee Patellofemoral syndrome left kneeFlexibility of quadriceps hamstrings and iliotibial bandRollers over quadriceps and iliotibial bandUltrasound over patellar tendonEccentric strengthening of quadriceps with leg pressBike program1-2 times a week for 6 weeks Referring Physician: Santy Hyde, Orthopedic Surgery, Encounter Date: 10/07/2022 Medical Equipment None Reported. Allergies Allergen ID Allergen Name Allergen Category Reaction Reaction Severity Criticality Documentation Date Start Date Code Code System Note Provider Name and Address Organization Details Recorded Time [id number] Zithromax medicatio n Not available Not available Not available 10/07/2022 37080 4 RxNorm Wild malloy [facility] 3 15:02:37 290236 acetamino phen / hydrocodo ne medicatio n Not available Not available Not available 10/07/2022 34790 2 RxNorm Wild malloy [facility] 3 15:02:41 Medications Name Sig Start Date Stop Date Status Note LastModified by Organization Details LastModified Time paroxetine 10 mg tablet Take 1 tablet every day by oral route. active Not Available Not Available No t Available Singulair active Not Available Not Andreea ilable Not Available Zyrtec active Not Available Not Availa ble Not Available Vitals Date Recorded Body height Body mass index (BMI) Body weight Provider Name and Address Organization Details Last Updated DateTime 10/07/2022 160.02 cm 29.6 kg/m2 24810.93 g Wild Suarez [facility] 10/07/2022 15:02:23 Social History None recorded. Functional Status Question Answer Note LastModified by Organization D etails LastModified Time What is your level of alcohol consumption? Heavy [email or web address] Information not available 10/07/2022 Mental Status None recorded. Family History Nothing Reported. Medical History No medical history recorded. Gynecological HistoryNo gynecological history recorded. Obstetrics History GPAL:G 0 P 0 0 0 0 Past Encounters Encounter ID Performer Location Encounter Start Date Encounter Closed Date Diagnosis/Indication Diagnosis SNOMED-CT Code Diagnosis ICD10 Code Diagnosis Note [id number] SANTY HYDE MD [address] [address] 10/07/2022 14:51:50 10/07/2022 20:46:49 Contusion of left knee 2526834815 5894359 S80.02XA Patellofem oral syndrome of left knee 2857651674 203204 M22.2X2 Health Concerns Section Related Observation LastModified by Organization Detai ls LastModified Time None Recorded Concern Status LastModified by Organization Details LastModified Time None Recorded Advance Directives Directive None Recorded Payers Insurance Date Sequence Insurance Name Policy Number Policy Urias Covered Member ID Urias Member ID Guarantor Name 10/12/2022 1 [facility] ([facility] [id number] Stephanie Freeman [id number] Trudy Olson Notes Date Note Type Note Provider Name and Address Organization Details Recorded Time 10/07/2022 text/html Chief complaint is left knee 1 year ago she fell directly onto her left knee. Since that time she has had pain. There is original quite a bit of ecchymosis and swelling. Most of that has resolved. She is return to all activities but she works as a [employer] and currently while she kneels she has pain. She has to apply to knee pads to the knee. She has pain to touch. She occasionally gets pain going up and down stairs. She has not tried any physical therapy. SANTY HYDE MD [address] [place] [address], [phone], [facility] 10/07/2022 17:14:23 OBGyn Episode No OBEpisode recorded.
[2024-07-27 12:33] VITALS: BP 118/64; PULSE 90; RESP 12; TEMP 37.2; O2SAT 99; BMI 26.6
== END 2024-07-27 13:45 | disposition home or self-care (01) ==
LOC: HO.HMCFM 12:27
PROVIDERS: PCP Nurse Practitioner Family; Visit Provider Nurse Practitioner Family
DX: Z00.01 Encounter for general adult medical examination with abnormal findings (principal); J45.20 Mild intermittent asthma, uncomplicated; F33.2 Major depressive disorder, recurrent severe without psychotic features; F90.0 Attention-deficit hyperactivity disorder, predominantly inattentive type; Z76.89 Persons encountering health services in other specified circumstances; F10.90 Alcohol use, unspecified, uncomplicated; Z91.09 Other allergy status, other than to drugs and biological substances; G47.33 Obstructive sleep apnea (adult) (pediatric); Z80.8 Family history of malignant neoplasm of other organs or systems; Z12.83 Encounter for screening for malignant neoplasm of skin; Z80.0 Family history of malignant neoplasm of digestive organs; Z80.3 Family history of malignant neoplasm of breast

== ENCOUNTER → 2024-07-27 12:26 | Outpatient (BNVA) | payer BC, SELFPAY | PROVIDERS: PCP Nurse Practitioner Family; Visit Provider Nurse Practitioner Family | DX: Z00.01 Encounter for general adult medical examination with abnormal findings (principal); Z76.89 Persons encountering health services in other specified circumstances; F33.2 Major depressive disorder, recurrent severe without psychotic features; F90.0 Attention-deficit hyperactivity disorder, predominantly inattentive type; F10.90 Alcohol use, unspecified, uncomplicated; J45.20 Mild intermittent asthma, uncomplicated; G47.33 Obstructive sleep apnea (adult) (pediatric); Q15.9 Congenital malformation of eye, unspecified; Z91.09 Other allergy status, other than to drugs and biological substances; Z99.89 Dependence on other enabling machines and devices; Z80.0 Family history of malignant neoplasm of digestive organs; Z80.3 Family history of malignant neoplasm of breast; Z80.8 Family history of malignant neoplasm of other organs or systems; Z13.31 Encounter for screening for depression; Z13.30 Encounter for screening examination for mental health and behavioral disorders, unspecified | CPT/HCPCS: 96127; 96160 ==